=== PATIENT | male | born 1930 | race Two or more races ===

== ENCOUNTER 2016-12-25 07:19 | Inpatient (IN) | payer MEDICARE, OTHER ==
[2016-12-25] VITALS (8 sets, daily range): BP systolic 135–162; BP diastolic 65–74; PULSE 89–112; RESP 18–23; TEMP 96.9–99.9; O2SAT 96–99
[~2016-12-25] VITALS: Ht 182.9 cm; Wt 104.0 kg
--- NOTE | 2016-12-25 07:31 | PD ---
HPI Chief Complaint: Fever Time Seen by Provider: 07:26 Travel History International Travel<30 days: No Contact w/Intl Traveler<30days: No Traveled to known affect area: No History of Present Illness HPI 86-year-old male was [facility] in by [facility] for tachycardia and fever. Patient was found with pulse 108 and temperature 102 this morning at local [facility]. EMS was called. Patient was transported to ED for evaluation. Patient awake and has no complaint. Patient has history of hypertension, hyperlipidemia, anal fistula, or back pain, dependent edema, anemia, GERD, BPH. Patient has a signed DNR. PFSH Past Medical History Cardiovascular Problems: Yes Social History Tobacco Use: No Allergies-Medications (Allergen,Severity, Reaction): Coded Allergies: No Known Allergies (Unverified , 12/25/16) Reported Meds & Prescriptions Reported Meds & Active Scripts Active Reported Metoprolol Tartrate 25 Mg Tab 25 Mg PO BID Metformin (Metformin HCl) 500 Mg Tab 500 Mg PO BIDPC With meals Glimepiride 2 Mg Tab 2 Mg PO BIDAC Ferrous Sulfate 325 Mg (65 Mg Iron) Tablet 325 Mg PO BIDPC Dorzolamide-Timolol Opth Drops 22.3-6.8 Mg/Ml Soln 1 Drop RIGHT EYE BID Tamsulosin (Tamsulosin HCl) 0.4 Mg Cap 0.4 Mg PO DAILY Oxybutynin ER 24 HR (Oxybutynin Chloride) 10 Mg Tab 10 Mg PO DAILY Lexapro (Escitalopram Oxalate) 10 Mg Tab 10 Mg PO DAILY Famotidine 20 Mg Tab 20 Mg PO HS Durezol Opth (Difluprednate Opth) 0.05% Emul Atorvastatin (Atorvastatin Calcium) 10 Mg Tab 10 Mg PO HS Amlodipine (Amlodipine Besylate) 10 Mg Tab 10 Mg PO DAILY Review of Systems General / Constitutional: Positive: Fever Eyes: No: Visual changes HENT: No: Headaches Cardiovascular: No: Chest Pain or Discomfort Respiratory: No: Shortness of Breath Gastrointestinal: No: Abdominal Pain Genitourinary: No: Dysuria Musculoskeletal: No: Pain Skin: No Rash Neurologic: No: Weakness Psychiatric: No: Depression Endocrine: No: Polydipsia Hematologic/Lymphatic: No: Easy Bruising Physical Exam Narrative GENERAL: Well-nourished, well-developed patient. SKIN: Focused skin assessment warm/dry. HEAD: Normocephalic. EYES: No scleral icterus. No injection or drainage. Pupils 2 mm equal reactive. NECK: Supple, trachea midline. No JVD or lymphadenopathy. No meningismus CARDIOVASCULAR: Regular rate and rhythm without murmurs, gallops, or rubs. RESPIRATORY: Breath sounds equal bilaterally. No accessory muscle use. GASTROINTESTINAL: Abdomen soft, non-tender, nondistended. MUSCULOSKELETAL: No cyanosis, or edema. BACK: Nontender without obvious deformity. No CVA tenderness. Neurologic exam: Patient's awake. Patient oriented to name. Patient moves all extremities well. No obvious focal neurological deficit. Data Data Last Documented VS Vital Signs Date Time Temp Pulse Resp B/P (MAP) Pulse Ox O2 Delivery O2 Flow Rate FiO2 12/25/16 09:54 93 18 147/66 (93) 97 Nasal Cannula 2.00 12/25/16 07:22 99.9 Orders Orders Electrocardiogram (12/25/16 07:26) Complete Blood Count With Diff (12/25/16:) Comprehensive Metabolic Panel (12/25/16:) Creatine Kinase (Cpk) (12/25/16:) Troponin I (12/25/16:26) B-Type Natriuretic Peptide (12/25/16:26) Prothrombin Time / Inr (Pt) (12/25/16:) Act Partial Throm Time (Ptt) (12/25/16:26) Blood Culture (12/25/16:) Urinalysis - C+S If Indicated (12/25/16:) Cath For Specimen (12/25/16:) Thyroid Stimulating Hormone (12/25/16:) Influenzae A/B Antigen (12/25/16:26) Chest, Single Ap (12/25/16:26) Iv Access Insert/Monitor (12/25/16:) Ecg Monitoring (12/25/16:) Oxygen Administration (12/25/16:) Oximetry (12/25/16:26) Lactic Acid Sepsis Protocol (12/25/16 07:28) Sodium Chlor 0.9% 1000 Ml Inj (Ns 1000 M (12/25/16 07:45) Vancomycin Inj (Vancomycin Inj) (12/25/16 07:45) Piperacil-Tazo 3.375 Gm Premix (Zosyn 3. (12/25/16 07:45) Urine Culture (12/25/16 08:04) Admit Order (Ed Use Only) (12/25/16 09:53) Labs Laboratory Tests Test 12/25/16 07:00 12/25/16 08:04 White Blood Count 22.0 TH/MM3 Red Blood Count 4.23 MIL/MM3 Hemoglobin 13.2 GM/DL Hematocrit 39.1 % Mean Corpuscular Volume 92.4 FL Mean Corpuscular Hemoglobin 31.2 PG Mean Corpuscular Hemoglobin Concent 33.8 % Red Cell Distribution Width 13.5 % Platelet Count 147 TH/MM3 Mean Platelet Volume 9.0 FL Neutrophils (%) (Auto) 87.3 % Lymphocytes (%) (Auto) 4.6 % Monocytes (%) (Auto) 7.4 % Eosinophils (%) (Auto) 0.2 % Basophils (%) (Auto) 0.5 % Neutrophils # (Auto) 19.2 TH/MM3 Lymphocytes # (Auto) 1.0 TH/MM3 Monocytes # (Auto) 1.6 TH/MM3 Eosinophils # (Auto) 0.0 TH/MM3 Basophils # (Auto) 0.1 TH/MM3 CBC Comment DIFF FINAL Differential Comment Prothrombin Time 12.0 SEC Prothromb Time International Ratio 1.1 RATIO Activated Partial Thromboplast Time 31.2 SEC Blood Urea Nitrogen 16 MG/DL Creatinine 1.04 MG/DL Random Glucose 173 MG/DL Total Protein 7.4 GM/DL Albumin 3.2 GM/DL Calcium Level 8.6 MG/DL Alkaline Phosphatase 90 U/L Aspartate Amino Transf (AST/SGOT) 11 U/L Alanine Aminotransferase (ALT/SGPT) 16 U/L Total Bilirubin 1.0 MG/DL Sodium Level 139 MEQ/L Potassium Level 4.2 MEQ/L Chloride Level 104 MEQ/L Carbon Dioxide Level 28.2 MEQ/L Anion Gap 7 MEQ/L Estimat Glomerular Filtration Rate 67 ML/MIN Lactic Acid Level 1.0 mmol/L Total Creatine Kinase 39 U/L Troponin I 0.03 NG/ML B-Type Natriuretic Peptide 141 PG/ML Thyroid Stimulating Hormone 3rd Gen 0.610 uIU/ML Urine Color YELLOW Urine Turbidity CLEAR Urine pH 5.5 Urine Specific [place] 1.017 Urine Protein 30 mg/dL Urine Glucose (UA) NEG mg/dL Urine Ketones TRACE mg/dL Urine Occult Blood SMALL Urine Nitrite NEG Urine Bilirubin NEG Urine Urobilinogen LESS THAN 2.0 MG/DL Urine Leukocyte Esterase MOD Urine RBC 4 /hpf Urine WBC 43 /hpf Urine WBC Clumps RARE Urine Bacteria OCC /hpf Urine Mucus FEW /lpf Microscopic Urinalysis Comment CULTURE INDICATED MDM Medical Decision Making Medical Screen Exam Complete: Yes Emergency Medical Condition: Yes Interpretation(s) Last Impressions Chest X-Ray 12/25/16 0726 Signed Impressions: Service Date/Time: Sunday, December 25, 2016 07:49 - CONCLUSION: No acute cardiopulmonary abnormality is identified. Brian Anderson MD 9:16 AM. CBC WBC 22.0. Platelet 147. 87 neutrophil. CMP within normal limit. After acid 1.0. BNP 141. UA positive for WBC and bacteria. Differential Diagnosis Differential diagnosis including sepsis, pneumonia, UTI, electrolyte imbalance, dehydration. Narrative Course 86-year-old male with fever and mild tachycardia. Sepsis protocol started. Normal saline solution 1 L IV bolus. Zosyn 3.375 g IV given. Vancomycin 1 g IV given. Diagnosis Primary Impression: Sepsis Qualified Codes: A41.9 - Sepsis, unspecified organism Additional Impression: UTI (urinary tract infection) Qualified Codes: N30.00 - Acute cystitis without hematuria Admitting Information Admitting Physician Requests: Admit Tay Mcpherson MD Dec 25, 2016 07:31
[2016-12-25] MEDS ORDERED: PIPERACIL-TAZO 3.375 GM PREMIX 50 ML IV ONE (07:45)
[2016-12-25] MEDS ORDERED: VANCOMYCIN INJ 1,000 MG in SODIUM CHLOR 0.9% 250 ML INJ 250 ML IV ONE (07:45)
[2016-12-25] MEDS ORDERED: SODIUM CHLOR 0.9% 1000 ML INJ 1,000 ML IV ONE (07:45)
[2016-12-25 07:49] LABS: AUTOMATED NEUTROPHIL # 19.2 TH/MM3 (1.8-7.7); BASOPHIL # 0.1 TH/MM3 (0-0.2); BASOPHIL % 0.5 % (0.0-2.0); EOSINOPHIL % 0.2 % (0.0-4.0); HEMATOCRIT 39.1 % (39.0-51.0); HEMO FLAGS DIFF FINAL; LYMPH % 4.6 % (9.0-44.0); MEAN CELL VOLUME 92.4 FL (80.0-100.0); MEAN CORPUSCULAR HEMOGLOBIN 31.2 PG (27.0-34.0); MEAN CORPUSCULAR HGB CONC 33.8 % (32.0-36.0); MONO % 7.4 % (0.0-8.0); NEUT % 87.3 % (16.0-70.0); PLATELET COUNT 147 TH/MM3 (150-450); RED BLOOD COUNT 4.23 MIL/MM3 (4.50-5.90); RED CELL DISTRIBUTION WIDTH 13.5 % (11.6-17.2)
--- NOTE | 2016-12-25 07:54 | RADRPT ---
EXAM DATE/TIME: 12/25/2016 07:49 [facility] COMPARISON: No previous studies available for comparison. INDICATIONS : Fever. MEDICAL HISTORY : unobtainable SURGICAL HISTORY : unobtainable ENCOUNTER: Initial ACUITY: 1 day PAIN SCORE: Non-responsive. LOCATION: Bilateral chest FINDINGS: Portable AP view of the chest demonstrates a normal-sized cardiac silhouette. No effusion, consolidat ion, or pneumothorax is visualized. The bones and soft tissues demonstrate no acute abnormality. CONCLUSION: No acute cardiopulmonary abnormality is identified. Brian Anderson MD on December 25, 2016 at 7:52 Board Certified Radiologist. This report was verified electronically.
[2016-12-25 08:00] LABS: APTT (PATIENT) 31.2 SEC (24.3-30.1); INTERNATIONAL NORMALIZED RATIO 1.1 RATIO
[2016-12-25 08:09] LABS: ALT (GPT) 16 U/L (12-78); ANION GAP 7 MEQ/L (5-15); AST (GOT) 11 U/L (15-37); BICARBONATE 28.2 MEQ/L (21.0-32.0); BLOOD UREA NITROGEN 16 MG/DL (7-18); CHLORIDE 104 MEQ/L (98-107); GLOMERULAR FILTRATION RATE 67 ML/MIN (>89); POTASSIUM 4.2 MEQ/L (3.5-5.1); SODIUM (NA) 139 MEQ/L (136-145)
[2016-12-25 08:18] LABS: ALKALINE PHOSPHATASE 90 U/L (45-117)
[2016-12-25 08:21] LABS: CREATINE KINASE 39 U/L (39-308)
[2016-12-25] MEDS ORDERED: FERR325T8 PO (08:23)
[2016-12-25] MEDS ORDERED: FAMO20TA2 PO (08:23)
[2016-12-25] MEDS ORDERED: METO25TA3 PO (08:23)
[2016-12-25] MEDS ORDERED: GLIM2TAB PO (08:23)
[2016-12-25] MEDS ORDERED: OXYB10TA PO (08:23)
[2016-12-25] MEDS ORDERED: TAMS0.4C4 PO (08:23)
[2016-12-25] MEDS ORDERED: LEXA10TA PO (08:23)
[2016-12-25] MEDS ORDERED: ATOR10TA15 PO (08:23)
[2016-12-25] MEDS ORDERED: AMLO10TA2 PO (08:23)
[2016-12-25] MEDS ORDERED: DIFL0.0512 (08:23)
[2016-12-25] MEDS ORDERED: METF500T PO (08:23)
[2016-12-25] MEDS ORDERED: DORZ2SOL15 RIGHT EYE (08:23)
[2016-12-25 08:40] LABS: BACTERIA, URINE OCC /hpf; BLOOD, URINE SMALL (NEG); COMMENT (UR) CULTURE INDICATED; CULTURE IF INDICATED CULTURE INDICATED; GLUCOSE,URINE NEG (NEG); KETONE, URINE TRACE mg/dL (NEG); MUCUS URINE FEW /lpf (OCC); NITRITE,URINE NEG (NEG); PH, URINE 5.5 (5.0-8.5); URINE COLOR YELLOW (YELLW/STRAW)
[2016-12-25] MEDS ORDERED: NALOXONE HCL 0.4 MG/ML AMP IV PRN (10:00)
[2016-12-25] MEDS ORDERED: SODIUM CHLORIDE 0.9% FLUSH 10 ML FLUSH IVF PRN (10:00)
[2016-12-25] MEDS ORDERED: Vancomycin Consult Pharmacy 1 EA OTHER SCH (10:00)
[2016-12-25] MEDS ORDERED: BISACODYL 10 MG SUPP RECTAL PRN (10:00)
[2016-12-25] MEDS ORDERED: SODIUM CHLORIDE 0.9% FLUSH 10 ML FLUSH IV FLUSH PRN (10:00)
[2016-12-25] MEDS ORDERED: ONDANSETRON HCL 4 MG/2 ML VIAL IVP PRN (10:00)
[2016-12-25] MEDS ORDERED: DEXTROSE 50% IN WATER 50 ML VIAL(D50) IV PRN (10:00)
[2016-12-25] MEDS ORDERED: ONDANSETRON HCL 4 MG/2 ML VIAL IV PRN (10:00)
[2016-12-25] MEDS ORDERED: GLUCAGON 1 MG/ML VIAL OTHER PRN (10:00)
[2016-12-25] MEDS ORDERED: LACTULOSE SYRUP 20 GM/30 ML CUP PO PRN (10:00)
[2016-12-25] MEDS ORDERED: MAGNESIUM HYDROXIDE SUSP 30 ML CUP PO PRN (10:00)
[2016-12-25] MEDS ORDERED: SENNOSIDES 8.6 MG TAB PO PRN (10:00)
[2016-12-25] MEDS ORDERED: ACETAMINOPHEN 325 MG TAB PO PRN (10:00)
[2016-12-25] MEDS: SODIUM CHLOR 0.9% 1000 ML INJ 1,000 ML IV SCH ×2 (10:47→17:43)
[2016-12-25] MEDS: INSULIN ASPART SUPPLEMENTAL SCALE SQ SCH ×3 (11:00→21:15)
[2016-12-25] MEDS: TOLTERODINE TARTRATE 4 MG CAP LA PO SCH (11:47)
[2016-12-25] MEDS: ENOXAPARIN SODIUM 40 MG/0.4 ML SYRINGE SQ SCH (13:45)
--- NOTE | 2016-12-25 13:45 | HHI.HP ---
[facility] Physician Souleymane Mckinley MD Admission Diagnosis sepsis. UTI. Diagnoses: Chief Complaint: Fever Travel History International Travel<30 Days: No Contact w/Intl Traveler <30 Da: No Traveled to Known Affected Are: No History of Present Illness This is a 86-year-old gentleman with past medical history of diabetes who presented from [facility] secondary to fevers and fatigue. Patient is a poor historian and most of the history taken from his son and daughter-in- law were at the bedside during the interview and examination. Patient is able to give me his full name and location. He could not tell me the date. I was able to get some information from and he had no complaints. His son stated that he sees patient every day and that yesterday he was more fatigued and was in bed all day. He stated that today he had a fevers they brought him here due to UTI. Patient never complained of any abdominal pain or any urinary symptoms. Per patient's son since he had the left femur fracture he does not have any motivation to do anything. Patient's son stated that patient being bedridden is his baseline. Patient wears a diaper. Per patient's son this is his first UTI. All other review symptoms reviewed and negative. Past Family Social History Past Medical History Type 2 diabetes Depression Hypertension Hyperlipidemia BPH History of left femur fracture Past Surgical History Left femur fracture repair Reported Medications Reported Meds & Active Scripts Active Reported Metoprolol Tartrate 25 Mg Tab 25 Mg PO BID Metformin (Metformin HCl) 500 Mg Tab 500 Mg PO BIDPC With meals Glimepiride 2 Mg Tab 2 Mg PO BIDAC Ferrous Sulfate 325 Mg (65 Mg Iron) Tablet 325 Mg PO BIDPC Dorzolamide-Timolol Opth Drops 22.3-6.8 Mg/Ml Soln 1 Drop RIGHT EYE BID Tamsulosin (Tamsulosin HCl) 0.4 Mg Cap 0.4 Mg PO DAILY Oxybutynin ER 24 HR (Oxybutynin Chloride) 10 Mg Tab 10 Mg PO DAILY Lexapro (Escitalopram Oxalate) 10 Mg Tab 10 Mg PO DAILY Famotidine 20 Mg Tab 20 Mg PO HS Durezol Opth (Difluprednate Opth) 0.05% Emul Atorvastatin (Atorvastatin Calcium) 10 Mg Tab 10 Mg PO HS Amlodipine (Amlodipine Besylate) 10 Mg Tab 10 Mg PO DAILY Allergies: Coded Allergies: No Known Allergies (Unverified , 12/25/16) Active Ordered Medications Current Medications Sodium Chloride 1,000 ml @ 999 mls/hr BOLUS ONCE IV Last administered on 12/25 08:16; Start 12/25/16 at 07:45; Stop 12/25/16 at 08:45; Status DC Vancomycin HCl 1000 mg/Sodium Chloride 250 ml @ 250 mls/hr ONCE ONCE IV Last administered on 12/25/16 08:50; Start 12/25/16 at 07:45; Stop 12/25/16 at 08:44 ; Status DC Piperacillin Sod/ Tazobactam Sod 50 ml @ 100 mls/hr ONCE ONCE IV Last administered on 12/25/16 08:16; Start 12/25/16 at 07:45; Stop 12/25/16 at 08:14 ; Status DC Sodium Chloride 1,000 ml @ 150 mls/hr Q6H40M IV Last administered on 10:47; Start 12/25/16 at 09:52 Sodium Chloride (NS Flush) 2 ml UNSCH PRN IV FLUSH FLUSH AFTER USING IV ACCESS ; Start 12/25/16 at 10:00 Sodium Chloride (NS Flush) 2 ml BID IV FLUSH ; Start 12/25/16 at 21:00 Acetaminophen (Tylenol) 650 mg Q4H PRN PO TEMP > 100.4; Start 12/25/16 at 10:00 ; Status Cancel Ondansetron HCl (Zofran Inj) 4 mg Q6H PRN IVP NAUSEA OR VOMITING; Start at 10:00 Naloxone HCl (Narcan Inj) 0.4 mg UNSCH PRN IV SEE LABEL COMMENTS; Start at 10:00 Senna/Docusate Sodium (Nhung-Colace) 1 tab BID PO ; Start 12/25/16 at 21:00 Magnesium Hydroxide (Milk Of Magnesia Liq) 30 ml Q12H PRN PO MILD - MODERATE CONSTIPATION; Start 12/25/16 at 10:00 Sennosides (Senokot) 17.2 mg Q12H PRN PO MODERATE - SEVERE CONSTIPATION; Start 12/25/16 at 10:00 Bisacodyl (Dulcolax Supp) 10 mg DAILY PRN RECTAL SEVERE CONSITIPATION; Start at 10:00 Lactulose (Lactulose Liq) 30 ml DAILY PRN PO SEVERE CONSITIPATION; Start at 10:00 Ondansetron HCl (Zofran Inj) 4 mg Q6H PRN IV NAUSEA OR VOMITING; Start at 10:00; Stop 12/25/16 at 10:25; Status DC Acetaminophen (Tylenol) 650 mg Q4H PRN PO Temp>101F, Headache; Start 12/25/16 at 10:00 Sodium Chloride (NS Flush) 2 ml UNSCH PRN IVF FLUSH AFTER USING IV ACCESS; Start 12/25/16 at 10:00; Status UNV Piperacillin Sod/ Tazobactam Sod 50 ml @ 100 mls/hr Q6H IV ; Start 12/25/16 at 14:00 Pharmacy Profile Note 0 ml @ 0 mls/hr UNSCH OTHER ; Start 12/25/16 at 10:00 Vancomycin HCl 1000 mg/Sodium Chloride 250 ml @ 250 mls/hr Q12H IV ; Start 01/31 at 19:00; Status UNV Atorvastatin Calcium (Lipitor) 10 mg HS PO ; Start 12/25/16 at 21:00 Dorzolamide/ Timolol (Cosopt 2-0.5% Opth Soln) 1 drop BID RIGHT EYE ; Start 01/31 at 21:00 Escitalopram Oxalate (Lexapro) 10 mg DAILY PO ; Start 12/26/16 at 09:00 Famotidine (Pepcid) 20 mg HS PO ; Start 12/25/16 at 21:00 Ferrous Sulfate (Ferrous Sulfate) 325 mg BIDPC PO ; Start 12/25/16 at 18:00 Tamsulosin HCl (Flomax) 0.4 mg DAILY PO ; Start 12/26/16 at 09:00 Tolterodine Tartrate (Detrol La) 4 mg DAILY PO Last administered on 12/25/16t 11:47; Start 12/25/16 at 11:00 Dextrose (D50w (Vial) Inj) 50 ml UNSCH PRN IV HYPOGLYCEMIA-SEE COMMENTS; Start 12/25/16 at 10:00 Glucagon (Glucagon Inj) 1 mg UNSCH PRN OTHER HYPOGLYCEMIA-SEE COMMENTS; Start 12/25/16 at 10:00 Insulin Aspart (NovoLOG SUPPLEMENTAL SCALE) 1 ACHS SLIDING SCALE SQ ; Start 01/31 at 11:00 Vancomycin HCl 1500 mg/Sodium Chloride 515 ml @ 257.5 mls/ hr Q18H IV ; Start 12/26/16 at 03:00 Miscellaneous Information SPECIFIC LAB TO BE MELISSA... ONCE ONCE .XX ; Start 12/28 at 08:45; Stop 12/28/16 at 08:46 Family History Per patient's son everyone the family's healthy. No past family history. Social History Patient lives in [place] with his who has severe dementia. Patient smoked in the past but stopped a long time ago. Denies any alcohol illicit drug use. Physical Exam Vital Signs Vital Signs Date Time Temp Pulse Resp B/P (MAP) Pulse Ox O2 Delivery O2 Flow Rate FiO2 12/25/16 12:55 89 20 145/74 (97) 96 Nasal Cannula 2.00 12/25/16 10:20 Nasal Cannula 2.00 12/25/16 09:54 93 18 147/66 (93) 97 Nasal Cannula 2.00 12/25/16 07:34 98 Nasal Cannula 2.00 12/25/16 07:27 110 22 96 Room Air 12/25/16 07:22 99.9 112 22 162/73 (102) 96 Physical Exam GENERAL: This is a well-nourished, well-developed patient, in no apparent distress. SKIN: No rashes, ecchymoses or lesions. Cool and dry. HEAD: Atraumatic. Normocephalic. No temporal or scalp tenderness. EYES: Pupils equal round and reactive. Extraocular motions intact. No scleral icterus. No injection or drainage. ENT: Nose without bleeding, purulent drainage or septal hematoma. Throat without erythema, tonsillar hypertrophy or exudate. Uvula midline. Airway patent. NECK: Trachea midline. No JVD or lymphadenopathy. Supple, nontender, no meningeal signs. CARDIOVASCULAR: Regular rate and rhythm without gallops, or rubs. Soft systolic heart murmur RESPIRATORY: Clear to auscultation. Breath sounds equal bilaterally. No wheezes , rales, or rhonchi. GASTROINTESTINAL: Abdomen soft, non-tender, nondistended. No hepato-splenomegaly , or palpable masses. No guarding. MUSCULOSKELETAL: Extremities without clubbing, cyanosis, or edema. Tenderness palpation over lower extremity bilaterally that is chronic. No calf tenderness. Negative Homans sign bilaterally. NEUROLOGICAL: Awake and alert. Cranial nerves II through XII intact. Motor and sensory grossly within normal limits. Five out of 5 muscle strength in all muscle groups. Normal speech. Laboratory Laboratory Tests Test 12/25/16 07:00 12/25/16 08:04 White Blood Count 22.0 Red Blood Count 4.23 Hemoglobin 13.2 Hematocrit 39.1 Mean Corpuscular Volume 92.4 Mean Corpuscular Hemoglobin 31.2 Mean Corpuscular Hemoglobin Concent 33.8 Red Cell Distribution Width 13.5 Platelet Count 147 Mean Platelet Volume 9.0 Neutrophils (%) (Auto) 87.3 Lymphocytes (%) (Auto) 4.6 Monocytes (%) (Auto) 7.4 Eosinophils (%) (Auto) 0.2 Basophils (%) (Auto) 0.5 Neutrophils # (Auto) 19.2 Lymphocytes # (Auto) 1.0 Monocytes # (Auto) 1.6 Eosinophils # (Auto) 0.0 Basophils # (Auto) 0.1 CBC Comment DIFF FINAL Differential Comment Prothrombin Time 12.0 Prothromb Time International Ratio 1.1 Activated Partial Thromboplast Time 31.2 Blood Urea Nitrogen 16 Creatinine 1.04 Random Glucose 173 Total Protein 7.4 Albumin 3.2 Calcium Level 8.6 Alkaline Phosphatase 90 Aspartate Amino Transf (AST/SGOT) 11 Alanine Aminotransferase (ALT/SGPT) 16 Total Bilirubin 1.0 Sodium Level 139 Potassium Level 4.2 Chloride Level 104 Carbon Dioxide Level 28.2 Anion Gap 7 Estimat Glomerular Filtration Rate 67 Lactic Acid Level 1.0 Total Creatine Kinase 39 Troponin I 0.03 B-Type Natriuretic Peptide 141 Thyroid Stimulating Hormone 3rd Gen 0.610 Urine Color YELLOW Urine Turbidity CLEAR Urine pH 5.5 Urine Specific [place] 1.017 Urine Protein 30 Urine Glucose (UA) NEG Urine Ketones TRACE Urine Occult Blood SMALL Urine Nitrite NEG Urine Bilirubin NEG Urine Urobilinogen LESS THAN 2.0 Urine Leukocyte Esterase MOD Urine RBC 4 Urine WBC 43 Urine WBC Clumps RARE Urine Bacteria OCC Urine Mucus FEW Microscopic Urinalysis Comment CULTURE INDICATED Date/Time Source Procedure Growth Status 12/25/16 07:00 Blood Peripheral Aerobic Blood Culture Pending Received 12/25/16 07:00 Blood Peripheral Anaerobic Blood Culture Pending Received 12/25/16 07:25 Nasal Washing Influenza Types A,B Antigen (LISA) - Final Complete 12/25/16 08:04 Urine Random Urine Urine Culture Pending Received Result Diagram: 12/25/16 0700 12/25/16 07 Imaging Last Impressions Chest X-Ray 12/25/16725 Signed Impressions: Service Date/Time: Sunday, December 25, 2016 07:49 - CONCLUSION: No acute cardiopulmonary abnormality is identified. Brian Anderson MD Septic Shock Reassessment Heart: Regular rate and rhythm Lungs: Clear Skin: Warm Caprini VTE Risk Assessment Caprini VTE Risk Assessment: Mod/High Risk (score >= 2) Caprini Risk Assessment Model Point Value = 1 Point Value = 2 Point Value = 3 Point Value = 5 Age 41-60 Minor surgery BMI > 25 kg/m2 Swollen legs Varicose veins or History of unexplained or recurrent spontaneous Oral contraceptives or hormone replacement Sepsis (< 1 month) Serious lung disease, including pneumonia (< 1 month) Abnormal pulmonary function Acute myocardial infarction Congestive heart failure (< 1 month) History of inflammatory bowel disease Medical patient at bed rest Age 61-74 Arthroscopic surgery Major open surgery (> 45 min) Laparoscopic surgery (> 45 min) Malignancy Confined to bed (> 72 hours) Immobilizing plaster cast Central venous access Age >= 75 History of VTE Family history of VTE Factor V Leiden Prothrombin [id number] Lupus anticoagulant Anticardiolipin antibodies Elevated serum homocysteine Heparin-induced thrombocytopenia Other congenital or acquired thrombophilia Stroke (< 1 month) Elective arthroplasty Hip, pelvis, or leg fracture Acute spinal cord injury (< 1 month) Prophylaxis Regimen Total Risk Factor Score Risk Level Prophylaxis Regimen 0-1 Low Early ambulation 2 Moderate Order ONE of the following: *Sequential Compression Device (SCD) *Heparin 5000 units SQ BID 3-4 Higher Order ONE of the following medications: *Heparin 5000 units SQ TID *Enoxaparin/Lovenox 40 mg SQ daily (WT < 150 kg, CrCl > 30 mL/min) *Enoxaparin/Lovenox 30 mg SQ daily (WT < 150 kg, CrCl > 10-29 mL/min) *Enoxaparin/Lovenox 30 mg SQ BID (WT < 150 kg, CrCl > 30 mL/min) AND/OR *Sequential Compression Device (SCD) 5 or more Highest Order ONE of the following medications: *Heparin 5000 units SQ TID (Preferred with Epidurals) *Enoxaparin/Lovenox 40 mg SQ daily (WT < 150 kg, CrCl > 30 mL/min) *Enoxaparin/Lovenox 30 mg SQ daily (WT < 150 kg, CrCl > 10-29 mL/min) *Enoxaparin/Lovenox 30 mg SQ BID (WT < 150 kg, CrCl > 30 mL/min) AND *Sequential Compression Device (SCD) Assessment and Plan Assessment and Plan This is a 86-year-old male past medical history of type 2 diabetes, hypertension , lipidemia, BPH, bed bound who presented with fever Sepsis -Patient meets sepsis criteria with fever, tachycardia, and leukocytosis. -Labs and imaging was obtained. Patient found to have leukocytosis 22,000 and UA suggest UTI. Chest x-ray negative. Blood cultures obtained. Urine cultures pending. -In emergency department he was given vancomycin and Zosyn. We'll continue with ankle mites and Zosyn. -He was also given a bolus of fluids with improvement in his blood pressure. Will give him maintenance fluids dose at 1 50 cc/h. -Continue to monitor. Will put patient on telemetry. Soft heart murmur -Family is unaware of heart murmur. Will get an echo. Type 2 diabetes -Will put patient on insulin sliding scale. Per patient's son patient is noncompliant. It also seemed that patient may have some peripheral neuropathy. -Hypoglycemia protocol. Will adjust medication based on blood sugars. UTI -See treatment as above. BPH/hyperlipidemia/hypertension -Resume home medication except for his antihypertensive medication secondary to sepsis. If blood pressure shows that patient is hypertensive will resume his medication. DVT prophylaxis -Lovenox. Code Status Dealt with patient, his son, and his [id number] patient is a DO NOT RESUSCITATE. Discussed Condition With Patient, his son, and his [id number]. Physician Certification 2 Midnight Certification Type: Admission for Inpatient Services Order for Inpatient Services The services are ordered in accordance with Medicare regulations or non- Medicare payer requirements, as applicable. In the case of services not specified as inpatient-only, they are appropriately provided as inpatient services in accordance with the 2-midnight benchmark. Estimated LOS (days): 3 3 days is the estimated time the patient will need to remain in the hospital, assuming treatment plan goals are met and no additional complications. Post-Hospital Plan: Tawana Peter MD Dec 25, 2016 13:45
[2016-12-25] MEDS: PIPERACIL-TAZO 3.375 GM PREMIX 50 ML IV SCH ×2 (14:20→21:08)
[2016-12-25] MEDS: FERROUS SULFATE 325 MG (65 MG ELEMENTAL IRON) TAB PO SCH (17:43)
[2016-12-25] MEDS ORDERED: VANCOMYCIN INJ 1,000 MG in SODIUM CHLOR 0.9% 250 ML INJ 250 ML IV SCH (19:00)
[2016-12-25] MEDS: DOCUSATE SODIUM 50 MG/SENNA 8.6 MG TAB PO SCH (20:44)
[2016-12-25] MEDS: SODIUM CHLORIDE 0.9% FLUSH 10 ML FLUSH IV FLUSH SCH (20:44)
[2016-12-25] MEDS: ATORVASTATIN 10 MG TAB PO SCH (20:44)
[2016-12-25] MEDS: FAMOTIDINE 20 MG TAB PO SCH (20:44)
[2016-12-25] MEDS: DORZOLAMIDE/TIMOLOL OPTH SOLN 10 ML BTL RIGHT EYE SCH (21:11)
[2016-12-26] VITALS (12 sets, daily range): BP systolic 120–144; BP diastolic 58–73; PULSE 71–100; RESP 16–20; TEMP 97–98.8; O2SAT 93–97
[2016-12-26] MEDS: SODIUM CHLOR 0.9% 1000 ML INJ 1,000 ML IV SCH ×5 (00:33→23:47)
[2016-12-26] MEDS: PIPERACIL-TAZO 3.375 GM PREMIX 50 ML IV SCH ×4 (02:41→19:43)
[2016-12-26] MEDS: VANCOMYCIN 1,500 MG/NS 500 ML IV SCH ×4 (03:21→22:02)
[2016-12-26] MEDS: INSULIN ASPART SUPPLEMENTAL SCALE SQ SCH ×4 (06:20→21:57)
[2016-12-26] MEDS ORDERED: TAMSULOSIN HCL 0.4 MG CAP PO SCH (09:00)
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
[2016-12-26] MEDS: TOLTERODINE TARTRATE 4 MG CAP LA PO SCH (10:08)
[2016-12-26] MEDS: FERROUS SULFATE 325 MG (65 MG ELEMENTAL IRON) TAB PO SCH ×2 (10:08→16:17)
[2016-12-26] MEDS: ESCITALOPRAM OXALATE 10 MG TAB PO SCH (10:08)
[2016-12-26] MEDS: SODIUM CHLORIDE 0.9% FLUSH 10 ML FLUSH IV FLUSH SCH ×2 (10:08→21:59)
[2016-12-26] MEDS: DORZOLAMIDE/TIMOLOL OPTH SOLN 10 ML BTL RIGHT EYE SCH ×2 (10:09→21:57)
[2016-12-26] MEDS: METOPROLOL TARTRATE 25 MG TAB PO SCH ×2 (10:12→21:58)
[2016-12-26] MEDS: DOCUSATE SODIUM 50 MG/SENNA 8.6 MG TAB PO SCH ×2 (10:23→21:00)
--- NOTE | 2016-12-26 11:15 | EKG ---
Date Performed: 12/25/2016 Time Performed: 07:39:34 PTAGE: 86 years EKG: SINUS TACHYCARDIA RIGHT BUNDLE BRANCH BLOCK LEFT ANTERIOR FASCICULAR BLOCK ABNORMAL ECG NO PREVIOUS TRACING DOCTOR: Tj Rowland Interpretating Date/Time 12/26/2016 11:14:41
[2016-12-26 11:55] LABS: HEMATOCRIT 36.1 % (39.0-51.0); MEAN CELL VOLUME 93.9 FL (80.0-100.0); MEAN CORPUSCULAR HEMOGLOBIN 31.1 PG (27.0-34.0); MEAN CORPUSCULAR HGB CONC 33.1 % (32.0-36.0); PLATELET COUNT 131 TH/MM3 (150-450); RED BLOOD COUNT 3.84 MIL/MM3 (4.50-5.90); RED CELL DISTRIBUTION WIDTH 13.5 % (11.6-17.2); REVIEW FLAG FINAL; WHITE BLOOD COUNT 19.9 TH/MM3 (4.0-11.0)
[2016-12-26 12:29] LABS: BICARBONATE 25.6 MEQ/L (21.0-32.0); POTASSIUM 3.7 MEQ/L (3.5-5.1)
[2016-12-26] MEDS: ENOXAPARIN SODIUM 40 MG/0.4 ML SYRINGE SQ SCH (14:19)
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
[2016-12-26] MEDS: ATORVASTATIN 10 MG TAB PO SCH (21:58)
[2016-12-26] MEDS: FAMOTIDINE 20 MG TAB PO SCH (21:58)
[2016-12-26] MEDS: TAMSULOSIN HCL 0.4 MG CAP PO SCH (21:59)
[2016-12-27] VITALS (16 sets, daily range): BP systolic 116–140; BP diastolic 56–69; PULSE 72–94; RESP 14–24; TEMP 96–98; O2SAT 93–100
[2016-12-27] MEDS: PIPERACIL-TAZO 3.375 GM PREMIX 50 ML IV SCH ×4 (02:40→20:36)
[2016-12-27] MEDS: INSULIN ASPART SUPPLEMENTAL SCALE SQ SCH ×4 (05:51→21:00)
[2016-12-27] MEDS: ESCITALOPRAM OXALATE 10 MG TAB PO SCH (07:58)
[2016-12-27] MEDS: TAMSULOSIN HCL 0.4 MG CAP PO SCH ×2 (07:58→21:00)
[2016-12-27] MEDS: FERROUS SULFATE 325 MG (65 MG ELEMENTAL IRON) TAB PO SCH ×2 (07:58→18:00)
[2016-12-27] MEDS: METOPROLOL TARTRATE 25 MG TAB PO SCH ×2 (07:58→21:00)
[2016-12-27] MEDS: DORZOLAMIDE/TIMOLOL OPTH SOLN 10 ML BTL RIGHT EYE SCH ×2 (08:00→20:37)
[2016-12-27] MEDS: DOCUSATE SODIUM 50 MG/SENNA 8.6 MG TAB PO SCH ×2 (08:05→21:00)
[2016-12-27] MEDS: SODIUM CHLOR 0.9% 1000 ML INJ 1,000 ML IV SCH (08:11)
[2016-12-27] MEDS: SODIUM CHLORIDE 0.9% FLUSH 10 ML FLUSH IV FLUSH SCH ×2 (08:11→20:36)
--- NOTE | 2016-12-27 10:14 | HHI.PR ---
Subjective Remarks Follow-up for sepsis, urinary retention, and UTI Patient stated that he slept better yesterday night and has no complaints. Denied any nausea or vomiting, abdominal pain or any concerns. Patient's night nurse stated that he had incontinence last night so she did not him. Dealt with patient's daytime nurse. Objective Vitals Vital Signs Date Time Temp Pulse Resp B/P (MAP) Pulse Ox O2 Delivery O2 Flow Rate FiO2 12/27/16 09:28 95 12/27/16 04:15 96.6 78 19 122/56 (78) 94 12/27/16 04:09 72 12/27/16 00:20 96.0 73 18 132/60 (84) 97 12/27/16 00:04 72 12/26/16 20:15 98.8 82 19 120/59 (79) 97 12/26/16 20:04 100 12/26/16 16:00 97.4 82 16 125/64 (84) 93 12/26/16 12:32 71 12/26/16 12:00 98.0 75 20 124/58 (80) 93 12/26/16 11:02 97 I/O 12/26/16 12/26/16 12/26/16 12/27/16 12/27/16 12/27/16 07:00 15:00 23:00 07:00 15:00 23:00 Intake Total 1105 ml 118 ml 1055 ml 50 ml Output Total 750 ml 250 ml 400 ml Balance 355 ml -132 ml 655 ml 50 ml Intake Oral 50 ml 118 ml 50 ml IV Total 1055 ml 1055 ml Output Urine Total 750 ml 250 ml 400 ml # Voids 1 1 3 # Bowel Movements 1 1 1 1 Result Diagram: 12/26/16 1056 12/26/16 1056 Objective Remarks GENERAL: in NAD CARDIOVASCULAR: Regular rate and rhythm without gallops, or rubs. 2/6 soft systolic murmur. RESPIRATORY: Breath sounds equal bilaterally. No accessory muscle use. GASTROINTESTINAL: Abdomen soft, non-tender, nondistended. BACK: No CVA tenderness. Medications and IVs Current Medications Sodium Chloride 1,000 ml @ 999 mls/hr BOLUS ONCE IV Last administered on 12/25t 08:16; Start 12/25/16 at 07:45; Stop 12/25/16 at 08:45; Status DC Vancomycin HCl 1000 mg/Sodium Chloride 250 ml @ 250 mls/hr ONCE ONCE IV Last administered on 12/25/16 08:50; Start 12/25/16 at 07:45; Stop 12/25/16 at 08:44 ; Status DC Piperacillin Sod/ Tazobactam Sod 50 ml @ 100 mls/hr ONCE ONCE IV Last administered on 12/25/16 08:16; Start 12/25/16 at 07:45; Stop 12/25/16 at 08:14 ; Status DC Sodium Chloride 1,000 ml @ 150 mls/hr Q6H40M IV Last administered on 08:11; Start 12/25/16 at 09:52 Sodium Chloride (NS Flush) 2 ml UNSCH PRN IV FLUSH FLUSH AFTER USING IV ACCESS ; Start 12/25/16 at 10:00 Sodium Chloride (NS Flush) 2 ml BID IV FLUSH Last administered on 12/26/16 21: 59; Start 12/25/16 at 21:00 Acetaminophen (Tylenol) 650 mg Q4H PRN PO TEMP > 100.4; Start 12/25/16 at 10:00 ; Status Cancel Ondansetron HCl (Zofran Inj) 4 mg Q6H PRN IVP NAUSEA OR VOMITING; Start at 10:00 Naloxone HCl (Narcan Inj) 0.4 mg UNSCH PRN IV SEE LABEL COMMENTS; Start at 10:00 Senna/Docusate Sodium (Nhung-Colace) 1 tab BID PO Last administered on 10:23; Start 12/25/16 at 21:00 Magnesium Hydroxide (Milk Of Magnesia Liq) 30 ml Q12H PRN PO MILD - MODERATE CONSTIPATION; Start 12/25/16 at 10:00 Sennosides (Senokot) 17.2 mg Q12H PRN PO MODERATE - SEVERE CONSTIPATION; Start 12/25/16 at 10:00 Bisacodyl (Dulcolax Supp) 10 mg DAILY PRN RECTAL SEVERE CONSITIPATION; Start at 10:00 Lactulose (Lactulose Liq) 30 ml DAILY PRN PO SEVERE CONSITIPATION; Start at 10:00 Ondansetron HCl (Zofran Inj) 4 mg Q6H PRN IV NAUSEA OR VOMITING; Start at 10:00; Stop 12/25/16 at 10:25; Status DC Acetaminophen (Tylenol) 650 mg Q4H PRN PO Temp>101F, Headache; Start 12/25/16 at 10:00 Sodium Chloride (NS Flush) 2 ml UNSCH PRN IVF FLUSH AFTER USING IV ACCESS; Start 12/25/16 at 10:00; Status UNV Piperacillin Sod/ Tazobactam Sod 50 ml @ 100 mls/hr Q6H IV Last administered on 12/27/16 07:57; Start 12/25/16 at 14:00 Pharmacy Profile Note 0 ml @ 0 mls/hr UNSCH OTHER ; Start 12/25/16 at 10:00 Vancomycin HCl 1000 mg/Sodium Chloride 250 ml @ 250 mls/hr Q12H IV ; Start 01/31 at 19:00; Status UNV Atorvastatin Calcium (Lipitor) 10 mg HS PO Last administered on 12/26/16 21:58 ; Start 12/25/16 at 21:00 Dorzolamide/ Timolol (Cosopt 2-0.5% Opth Soln) 1 drop BID RIGHT EYE Last administered on 12/27/16 08:00; Start 12/25/16 at 21:00 Escitalopram Oxalate (Lexapro) 10 mg DAILY PO Last administered on 12/27/16 07 :58; Start 12/26/16 at 09:00 Famotidine (Pepcid) 20 mg HS PO Last administered on 12/26/16 21:58; Start 01/31 at 21:00 Ferrous Sulfate (Ferrous Sulfate) 325 mg BIDPC PO Last administered on 07:58; Start 12/25/16 at 18:00 Tamsulosin HCl (Flomax) 0.4 mg DAILY PO Last administered on 12/26/16 10:08; Start 12/26/16 at 09:00; Stop 12/26/16 at 12:42; Status DC Tolterodine Tartrate (Detrol La) 4 mg DAILY PO Last administered on 12/26/16 10:08; Start 12/25/16 at 11:00; Stop 12/26/16 at 12:42; Status DC Dextrose (D50w (Vial) Inj) 50 ml UNSCH PRN IV HYPOGLYCEMIA-SEE COMMENTS; Start 12/25/16 at 10:00 Glucagon (Glucagon Inj) 1 mg UNSCH PRN OTHER HYPOGLYCEMIA-SEE COMMENTS; Start 12/25/16 at 10:00 Insulin Aspart (NovoLOG SUPPLEMENTAL SCALE) 1 ACHS SLIDING SCALE SQ Last administered on 12/26/16 21:57; Start 12/25/16 at 11:00 Vancomycin HCl 1500 mg/Sodium Chloride 515 ml @ 257.5 mls/ hr Q18H IV Last administered on 12/26/16 22:02; Start 12/26/16 at 03:00 Miscellaneous Information SPECIFIC LAB TO BE ... ONCE ONCE .XX ; Start 12/28 at 08:45; Stop 12/28/16 at 08:46 Enoxaparin Sodium (Lovenox Inj) 40 mg Q24H SQ Last administered on 12/26/16 14 :19; Start 12/25/16 at 13:45 Amlodipine Besylate (Norvasc) 10 mg DAILY PO Last administered on 12/27/16 07: 58; Start 12/26/16 at 09:45 Metoprolol Tartrate (Lopressor) 25 mg BID PO Last administered on 12/27/16 07: 58; Start 12/26/16 at 09:45 Tamsulosin HCl (Flomax) 0.4 mg Q12HR PO Last administered on 12/27/16 07:58; Start 12/26/16 at 21:00 A/P Assessment and Plan This is a 86-year-old male past medical history of type 2 diabetes, hypertension , hyperlipidemia, BPH, bed bound who presented with fever Sepsis -Patient meets sepsis criteria with fever, tachycardia, and leukocytosis. -Labs and imaging was obtained. Patient found to have leukocytosis 22,000 and UA suggest UTI. Chest x-ray negative. Urine cultures grew protease mirabilis pending sensitivity. Mild improvement in leukocytosis pending CBC from today. -/ blood cultures show staph coagulase-negative which most likely is contaminant. -Continue with vancomycin and Zosyn pending cultures. Soft heart murmur -Family is unaware of heart murmur. -Pending echo. Type 2 diabetes -Per patient's son patient is noncompliant. It also seemed that patient may have some peripheral neuropathy. -Continue with insulin sliding scope. -Hypoglycemia protocol. Will adjust medication based on blood sugars. Complicated UTI -See treatment as above. Urinary retention -most likely secondary to BPH. At baseline patient wears a diaper. -Renal ultrasound negative. -Urologist consulted. -Poor urologist flomax was increased to twice a day, continue with intermittent and clean tab every 6 hours when necessary, oxybutynin and dextrol LA held. BPH/hyperlipidemia/hypertension -Continue home medication. Oxybutynin and dextrol LA was held. DVT prophylaxis -Lovenox. Discharge Planning Once patient is medically clear for discharge he will go back to his previous SNF with his . At baseline patient is bedridden. Possible discharge tomorrow if blood cultures continued to be negative and sensitive completed. Tawana Powers MD Dec 27, 2016 10:14
[2016-12-27 12:14] LABS: BLOOD GAS BASE EXCESS -4.6 mmol/L (-2-2); BLOOD GAS CARBOXYHEMOGLOBIN 0.8 % (0-4); BLOOD GAS HCO3 23 mmol/L (22-26); BLOOD GAS O2 HGB SATURATION 96 % (90-100); BLOOD GAS PCO2 69 mmHg (38-42); BLOOD GAS PO2 132 mmHg (61-120); BLOOD GAS TOTAL HGB 13.9 G/DL (12.0-16.0); CRITICAL VALUE YES; TEMP CORR TO 98.6
[2016-12-27 12:15] LABS: DRAW SITE RT RADIAL; LITER FLOW 15 L/M; NUMBER OF ARTERIAL PUNCTURES 1; STAT YES; ULNAR PULSE PRESENT
[2016-12-27] MEDS ORDERED: FUROSEMIDE 100 MG/10 ML VIAL IV PUSH ONE (12:15)
--- NOTE | 2016-12-27 12:33 | RADRPT ---
EXAM DATE/TIME: 12/27/2016 12:13 [facility] COMPARISON: CHEST SINGLE AP, December 25, 2016, 7:49. INDICATIONS : Shortness of breath. MEDICAL HISTORY : Hypertension. Diabetes mellitus type II. Gastroesophageal reflux disease. SURGICAL HISTORY : None. ENCOUNTER: Subsequent ACUITY: 3 days PAIN SCORE: Non-responsive. LOCATION: Bilateral chest FINDINGS: 2 AP erect portable views of the chest were obtained and demonstrate new consolidative opacity in the right lower lobe. The heart size remains at the upper limits of normal. There is mild streaky opacit y in the perihilar regions and left lung base. Atherosclerotic changes are present in the aorta. The patient is mildly rotated. There is no definite effusion. Multiple overlying electrocardiogram leads are present. The bony thorax is intact. CONCLUSION: New consolidative opacity in right lower lobe most characteristic of pneumonia.. Maximino Bae MD on December 27, 2016 at 12:29 Board Certified Radiologist. This report was verified electronically.
[2016-12-27] MEDS ORDERED: MIDAZOLAM HCL 5 MG/ML VIAL (1 ML) ONE (13:15)
[2016-12-27] MEDS ORDERED: ROCURONIUM INJ 50 MG/5 ML VIAL ONE (13:15)
--- NOTE | 2016-12-27 13:48 | PD.CONS ---
[facility] Service Critical Care Medicine Consult Requested By Elderly man has developed respiratory acidosis with CO2 narcosis manifesting as respiratory failure and obtundation. He signed a [place] DNR form in 2015 and subsequently he and his son have verbally confirmed this in the past few days. However, a female family member, possibly daughter, was contacted at the home phone number today, and when told of his imminent respiratory failure rescinded the DNR. I have transferred him from the Oncology Floor to [facility] for urgent intubation and mechanical ventilation. CXR shows a new large RLL pneumonia. Primary Care Physician Souleymane Mckinley MD Review of Systems ROS Unobtainable, obtunded. No family. Past Family Social History Allergies: Coded Allergies: No Known Allergies (Unverified , 12/25/16) Past Medical History Past Medical History Cardiovascular Problems: Yes Social History Tobacco Use: No Allergies-Medications Allergies-Medications (Allergen,Severity, Reaction): Coded Allergies: No Known Allergies (Unverified , 12/25/16) Reported Meds & Prescriptions Reported Meds & Active Scripts Active Reported Metoprolol Tartrate 25 Mg Tab 25 Mg PO BID Metformin (Metformin HCl) 500 Mg Tab 500 Mg PO BIDPC With meals Glimepiride 2 Mg Tab 2 Mg PO BIDAC Ferrous Sulfate 325 Mg (65 Mg Iron) Tablet 325 Mg PO BIDPC Dorzolamide-Timolol Opth Drops 22.3-6.8 Mg/Ml Soln 1 Drop RIGHT EYE BID Tamsulosin (Tamsulosin HCl) 0.4 Mg Cap 0.4 Mg PO DAILY Oxybutynin ER 24 HR (Oxybutynin Chloride) 10 Mg Tab 10 Mg PO DAILY Lexapro (Escitalopram Oxalate) 10 Mg Tab 10 Mg PO DAILY Famotidine 20 Mg Tab 20 Mg PO HS Durezol Opth (Difluprednate Opth) 0.05% Emul Atorvastatin (Atorvastatin Calcium) 10 Mg Tab 10 Mg PO HS Amlodipine (Amlodipine Besylate) 10 Mg Tab 10 Mg PO DAILY Physical Exam Vital Signs Vital Signs Date Time Temp Pulse Resp B/P (MAP) Pulse Ox O2 Delivery O2 Flow Rate FiO2 12/27/16 12:45 100 50 12/27/16 12:05 95 15.00 12/27/16 09:28 95 12/27/16 08:00 96.4 87 24 140/69 (92) 93 12/27/16 04:15 96.6 78 19 122/56 (78) 94 12/27/16 04:09 72 12/27/16 00:20 96.0 73 18 132/60 (84) 97 12/27/16 00:04 72 12/26/16 20:15 98.8 82 19 120/59 (79) 97 12/26/16 20:04 100 12/26/16 16:00 97.4 82 16 125/64 (84) 93 Physical Exam P 88, BP 146/72, R 9 shallow, Sats 66% Head: Atraumatic. Neck: Supple, no stridor. Lungs: Poor bilateral air entry, small excursions, slow rate. No wheezes. Heart: NL S1S2, 3/6 systolic murmur. No JVD Abdomen: Large, soft, nondistended, no guarding. Extremities: Minor chronic induration both shins, trace edema ankles. Neuro: Withdraws 4 limbs to noxious stimulation, Pupils 3 mm, sluggish reaction. Does not focus or track. Gag intact. Laboratory Laboratory Tests Test 12/27/16 08:41 12/27/16 11:52 Creatinine 0.81 Estimat Glomerular Filtration Rate 90 Blood Gas Puncture Site RT RADIAL Blood Gas Patient Temperature 98.6 Blood Gas HCO3 23 Blood Gas Base Excess -4.6 Blood Gas Oxygen Saturation 96 Arterial Blood pH 7.15 Arterial Blood Partial Pressure CO2 69 Arterial Blood Partial Pressure O2 132 Arterial Blood Oxygen Content 19.0 Arterial Blood Carboxyhemoglobin 0.8 Arterial Blood Methemoglobin 1.0 Blood Gas Hemoglobin 13.9 Oxygen Delivery Device Non-Rebreathing Mask Blood Gas Liter Flow 15 Date/Time Source Procedure Growth Status 12/25/16 07:00 Blood Peripheral Aerobic Blood Culture - Preliminary NO GROWTH IN 2 DAYS Resulted 12/25/16 07:00 Blood Peripheral Anaerobic Blood Culture - Preliminary NO GROWTH IN 2 DAYS Resulted 12/25/16 07:25 Nasal Washing Influenza Types A,B Antigen (LISA) - Final Complete 12/25/16 08:04 Urine Random Urine Urine Culture - Preliminary Proteus Mirabilis Resulted Result Diagram: 12/26/16 1056 12/27/16 0841 Imaging CXR: RLL pneumonia Assessment and Plan Assessment and Plan Assessment: 1. Hypercapneic Respiratory Failure. 2. UTI. 3. DM, Type 2 Plan: 1. PRVC vent mode. 2. ABG after 1 hour. 3. Continue broad abx coverage, narrow after C&S -> Urine Proteus 4. Propofol prn sedation. 5. Honeycutt. 6. Pepcid. 7. Lovenox DVT px. 8. Reconcile code status with family. Overall impression: Critically ill with acute respiratory failure requiring emergency intubation and mechanical ventilation. Critical care 43 mins aside from procedure. Zana Hernandez MD Dec 27, 2016 13:48
--- NOTE | 2016-12-27 14:02 | PD.PROCEDR ---
Procedure Note Procedure DX: Respiratory Failure (J96.02) OP: Orotracheal Intubation (50052) Procedure: Bag mask ventilation. Versed 5 mg and rocuronium 100 mg iv. Intubated orally with 8.0 tube. Position confirmed with CO2 detection, breath sounds, sats 100%. CXR ordered, will review. Zana Hernandez MD Dec 27, 2016 14:02
[2016-12-27 14:36] LABS: BLOOD GAS BASE EXCESS -2.9 mmol/L (-2-2); BLOOD GAS CARBOXYHEMOGLOBIN 0.9 % (0-4); BLOOD GAS HCO3 22 mmol/L (22-26); BLOOD GAS METHEMOGLOBIN 0.7 % (0-2); BLOOD GAS O2 HGB SATURATION 98 % (90-100); BLOOD GAS OXYGEN CONTENT 18.5 Vol % (12.0-20.0); BLOOD GAS PCO2 44 mmHg (38-42); BLOOD GAS PO2 266 mmHg (61-120); TEMP CORR TO 98.6
[2016-12-27 14:37] LABS: CRITICAL VALUE NO; FIO2 100 %; OXYGEN DEVICE VENTILATOR
[2016-12-27 14:38] LABS: DRAW SITE LT RADIAL; NUMBER OF ARTERIAL PUNCTURES 1; STAT NO; ULNAR PULSE PRESENT
[2016-12-27] MEDS: ENOXAPARIN SODIUM 40 MG/0.4 ML SYRINGE SQ SCH (14:52)
[2016-12-27] MEDS: PROPOFOL 1000 MG/100 ML INJ 100 ML IV PRN ×2 (14:53→18:22)
[2016-12-27] MEDS: VANCOMYCIN 1,500 MG/NS 500 ML IV SCH ×2 (16:18)
--- NOTE | 2016-12-27 16:26 | RADRPT ---
EXAM DATE/TIME: 12/27/2016 15:16 [facility] COMPARISON: CHEST SINGLE AP, December 27, 2016, 12:13. INDICATIONS : Post intubation. MEDICAL HISTORY : Hypertension. Diabetes mellitus type II. Gastroesophageal reflux disease. SURGICAL HISTORY : None. ENCOUNTER: Subsequent ACUITY: 3 days PAIN SCORE: Non-responsive. LOCATION: Bilateral chest FINDINGS: An endotracheal tube has its tip 1 cm above the monse. This could be pulled back 2 cm for more opti mal positioning. Bibasilar and perihilar infiltrates are again noted and are unchanged. A nasogastr ic tube has its tip below the diaphragm. The heart is stable. CONCLUSION: 1. Stable bibasilar and perihilar infiltrates consistent with pulmonary edema versus pneumonia. Clin ical correlation is recommended. 2. Endotracheal tube has its tip 1 cm above the monse. This could be pulled back 2 cm for optimal p ositioning. Nicolas Cardenas MD on December 27, 2016 at 16:10 Board Certified Radiologist. This report was verified electronically.
[2016-12-27] MEDS: CHLORHEXIDINE 0.12% (ORAL KIT) 15 ML CUP MT SCH (20:00)
[2016-12-27] MEDS: ATORVASTATIN 10 MG TAB PO SCH (21:00)
[2016-12-27] MEDS: FAMOTIDINE 20 MG TAB PO SCH (21:00)
[2016-12-27 23:38] LABS: BICARBONATE 21.2 MEQ/L (21.0-32.0)
[2016-12-28] VITALS (21 sets, daily range): BP systolic 130–156; BP diastolic 60–74; PULSE 59–79; RESP 14–20; TEMP 97.9–98.5; O2SAT 97–100
[2016-12-28] MEDS: PROPOFOL 1000 MG/100 ML INJ 100 ML IV PRN ×2 (00:08→06:17)
--- NOTE | 2016-12-28 01:23 | RADRPT ---
EXAM DATE/TIME: 12/28/2016 01:01 [facility] COMPARISON: No previous studies available for comparison. INDICATIONS : Altered. Dilated right pupil. RADIATION DOSE: 37.12 CTDIvol (mGy) ; Patient motion MEDICAL HISTORY : Hypertension. Diabetes. SURGICAL HISTORY : None. ENCOUNTER: Initial ACUITY: 1 day PAIN SCALE: Non-responsive LOCATION: cranial TECHNIQUE: Multiple contiguous axial images were obtained of the head. Using automated exposure control and adj ustment of the mA and/or kV according to patient size, radiation dose was kept as low as reasonably a chievable to obtain optimal diagnostic quality images. DICOM format image data is available electro nically for review and comparison. FINDINGS: CEREBRUM: The ventricles are normal for age. No evidence of midline shift, mass lesion, hemorrhage or acute in farction. No extra-axial fluid collections are seen. POSTERIOR FOSSA: The cerebellum and brainstem are intact. The 4th ventricle is midline. The cerebellopontine angle i s unremarkable. EXTRACRANIAL: The visualized portion of the orbits is intact. SKULL: The calvaria is intact. No evidence of skull fracture. CONCLUSION: 1. No acute findings. Chronic white matter ischemic changes. Mucosal thickening ethmoid air cells. Kb Hendrix MD on December 28, 2016 at 1:19 Board Certified Radiologist. This report was verified electronically.
[2016-12-28] MEDS: PIPERACIL-TAZO 3.375 GM PREMIX 50 ML IV SCH ×4 (01:35→20:29)
[2016-12-28 05:46] LABS: HEMATOCRIT 38.8 % (39.0-51.0); MEAN CELL VOLUME 92.7 FL (80.0-100.0); MEAN CORPUSCULAR HEMOGLOBIN 31.1 PG (27.0-34.0); MEAN CORPUSCULAR HGB CONC 33.5 % (32.0-36.0); PLATELET COUNT 160 TH/MM3 (150-450); RED BLOOD COUNT 4.18 MIL/MM3 (4.50-5.90); RED CELL DISTRIBUTION WIDTH 13.6 % (11.6-17.2); WHITE BLOOD COUNT 11.4 TH/MM3 (4.0-11.0)
[2016-12-28 05:59] LABS: REVIEW FLAG FINAL
[2016-12-28 06:06] LABS: BICARBONATE 27.7 MEQ/L (21.0-32.0); POTASSIUM 3.3 MEQ/L (3.5-5.1)
--- NOTE | 2016-12-28 06:18 | RADRPT ---
EXAM DATE/TIME: 12/28/2016 05:36 [facility] COMPARISON: CHEST SINGLE AP, December 27, 2016, 15:16. INDICATIONS : Shortness of breath. MEDICAL HISTORY : Hypertension. Diabetes, Benign prostatic hyperplasia, (BPH) GERD, Anemia. Depression SURGICAL HISTORY : Right leg surgery ENCOUNTER: Subsequent ACUITY: 3 days PAIN SCORE: Non-responsive. LOCATION: Bilateral chest FINDINGS: A single view of the chest demonstrates endotracheal tube in good position. NG enters stomach. Bilate ral mostly basilar airspace disease with probable small effusions. No pneumothorax. CONCLUSION: 1. Endotracheal tube and nasogastric tube in good position. Basilar airspace disease similar to Septe mber 12. Kb Hendrix MD on December 28, 2016 at 6:15 Board Certified Radiologist. This report was verified electronically.
[2016-12-28] MEDS: CHLORHEXIDINE 0.12% (ORAL KIT) 15 ML CUP MT SCH ×2 (07:42→20:00)
[2016-12-28] MEDS: INSULIN ASPART SUPPLEMENTAL SCALE SQ SCH ×4 (07:42→21:00)
[2016-12-28] MEDS ORDERED: PHARMACY ORDERED LAB ONE (08:45)
[2016-12-28] MEDS: VANCOMYCIN 1,500 MG/NS 500 ML IV SCH ×2 (08:54)
[2016-12-28] MEDS: SODIUM CHLORIDE 0.9% FLUSH 10 ML FLUSH IV FLUSH SCH ×2 (08:55→20:29)
[2016-12-28] MEDS: DOCUSATE SODIUM 50 MG/SENNA 8.6 MG TAB PO SCH ×2 (08:55→21:00)
[2016-12-28] MEDS: FERROUS SULFATE 325 MG (65 MG ELEMENTAL IRON) TAB PO SCH ×2 (08:55→18:00)
[2016-12-28] MEDS: METOPROLOL TARTRATE 25 MG TAB PO SCH ×2 (08:55→20:30)
[2016-12-28] MEDS: DORZOLAMIDE/TIMOLOL OPTH SOLN 10 ML BTL RIGHT EYE SCH ×2 (08:55→23:22)
[2016-12-28] MEDS: ESCITALOPRAM OXALATE 10 MG TAB PO SCH (08:55)
[2016-12-28] MEDS: TAMSULOSIN HCL 0.4 MG CAP PO SCH ×2 (08:56→20:29)
--- NOTE | 2016-12-28 09:46 | HHI.CCPN ---
Subjective Remarks/Hospital Course Elderly man has developed respiratory acidosis with CO2 narcosis manifesting as respiratory failure and obtundation. He signed a [place] DNR form in 2014 and subsequently he and his son have verbally confirmed this in the past few days. However, a female family member, possibly daughter, was contacted at the home phone number today, and when told of his imminent respiratory failure rescinded the DNR. I have transferred him from the Oncology Floor to [facility] for urgent intubation and mechanical ventilation. CXR shows a new large RLL pneumonia. 12/28: Gas exchange has improved. Pneumonia persists. We need to clarify care goals with family before we extubate. Objective Vital Signs Date Time Temp Pulse Resp B/P (MAP) Pulse Ox O2 Delivery O2 Flow Rate FiO2 12/28/16 08:10 50 12/28/16 08:00 97.9 76 20 156/74 (101) 99 12/27/16 12:05 15.00 12/25/16 12:55 Nasal Cannula Intake and Output 12/28/16 12/28/16 12/29/16 08:00 16:00 00:00 Intake Total 336 ml Output Total 1450 ml Balance -1114 ml Result Diagram: 12/28/16 0427 12/28/16 0427 Other Results Laboratory Tests Test 12/27/16 11:52 12/27/16 14:20 Blood Gas Puncture Site RT RADIAL LT RADIAL Blood Gas Patient Temperature 98.6 98.6 Blood Gas HCO3 23 mmol/L (22-26) 22 mmol/L (22-26) Blood Gas Base Excess -4.6 mmol/L (-2-2) -2.9 mmol/L (-2-2) Blood Gas Oxygen Saturation 96 % (90-100) 98 % (90-100) Arterial Blood pH 7.15 (7.380-7.420) 7.32 (7.380-7.420) Arterial Blood Partial Pressure CO2 69 mmHg (38-42) 44 mmHg (38-42) Arterial Blood Partial Pressure O2 132 mmHg (61-120) 266 mmHg (61-120) Arterial Blood Oxygen Content 19.0 Vol % (12.0-20.0) 18.5 Vol % (12.0-20.0) Arterial Blood Carboxyhemoglobin 0.8 % (0-4) 0.9 % (0-4) Arterial Blood Methemoglobin 1.0 % (0-2) 0.7 % (0-2) Blood Gas Hemoglobin 13.9 G/DL (12.0-16.0) 13.0 G/DL (12.0-16.0) Oxygen Delivery Device Non-Rebreathing Mask VENTILATOR Blood Gas Liter Flow 15 L/M Blood Gas Ventilator Setting Blood Gas Inspired Oxygen 100 % Imaging CXR: RLL pneumonia Objective Remarks Head: Atraumatic. Neck: Supple, no stridor. Lungs: Scattered rhonchi, good gareth air movement. Heart: NL S1S2, 3/6 systolic murmur. No JVD Abdomen: Large, soft, nondistended, no guarding. BS active. Extremities: Minor chronic induration both shins, trace edema ankles. Neuro: Withdraws 4 limbs to noxious stimulation, Pupils 3 mm Does not focus or track. Gag intact. Opens eyes to voice. A/P Assessment and Plan Assessment: 1. Hypercapneic Respiratory Failure. 2. UTI. 3. DM, Type 2 4. Right lung pneumonia. Plan: 1. PRVC vent mode. 2. ABG after 1 hour. 3. Continue broad abx coverage, narrow after C&S -> Urine Proteus 4. Propofol prn sedation. 5. Honeycutt. 6. Pepcid. 7. Lovenox DVT px. 8. Reconcile code status with family. 9. Review sputum culture. Overall impression: Critically ill with acute respiratory failure requiring emergency intubation and mechanical ventilation. Unable to wean ventilator today. Critical care 38 mins Zana Hernandez MD Dec 28, 2016 09:46
[2016-12-28] MEDS: ENOXAPARIN SODIUM 40 MG/0.4 ML SYRINGE SQ SCH (13:58)
[2016-12-28] MEDS: FAMOTIDINE 20 MG TAB PO SCH (21:00)
[2016-12-28] MEDS: ATORVASTATIN 10 MG TAB PO SCH (21:00)
[2016-12-28] MEDS ORDERED: POTASSIUM CHLOR 40 MEQ PREMIX 100 ML IV PRN ×2 (23:30)
[2016-12-28] MEDS ORDERED: POTASSIUM PHOSPHATE MONOBASIC 500 MG TAB PO/TUBE PRN (23:30)
[2016-12-28] MEDS ORDERED: MAGNESIUM SULFATE INJ 4 GM in SODIUM CHLORIDE 0.9% INJ 92 ML IV PRN (23:30)
[2016-12-28] MEDS ORDERED: MAGNESIUM SULFATE INJ 2 GM in SODIUM CHLORIDE 0.9% INJ 96 ML IV PRN (23:30)
[2016-12-28] MEDS ORDERED: SODIUM PHOSPHATE INJ 30 MMOL in SODIUM CHLOR 0.9% 250 ML INJ 240 ML IV PRN (23:30)
[2016-12-28] MEDS ORDERED: POTASSIUM PHOSPHATE INJ 30 MMOL in SODIUM CHLOR 0.9% 250 ML INJ 250 ML IV PRN (23:30)
[2016-12-28] MEDS ORDERED: POTASSIUM CHLOR 20 MEQ PREMIX 100 ML IV PRN (23:30)
[2016-12-28] MEDS ORDERED: POTASSIUM PHOSPHATE MONOBASIC 500 MG TAB PO PRN (23:30)
[2016-12-28] MEDS ORDERED: MAGNESIUM OXIDE 400 MG TAB PO PRN (23:30)
[2016-12-28] MEDS: POTASSIUM CHLOR 20 MEQ PREMIX 100 ML IV PRN (23:44)
[2016-12-29] VITALS (18 sets, daily range): BP systolic 123–148; BP diastolic 57–63; PULSE 51–73; RESP 14–16; TEMP 97.7–99.1; O2SAT 97–100
[2016-12-29] MEDS: PROPOFOL 1000 MG/100 ML INJ 100 ML IV PRN ×4 (00:27→19:22)
[2016-12-29] MEDS: PIPERACIL-TAZO 3.375 GM PREMIX 50 ML IV SCH ×4 (02:03→20:57)
[2016-12-29] MEDS ORDERED: PHARMACY ORDERED LAB ONE (02:45)
[2016-12-29] MEDS: POTASSIUM CHLOR 20 MEQ PREMIX 100 ML IV PRN ×2 (03:05→06:58)
[2016-12-29] MEDS: VANCOMYCIN 1,500 MG/NS 500 ML IV SCH ×2 (04:45)
[2016-12-29 05:06] LABS: AUTOMATED NEUTROPHIL # 6.9 TH/MM3 (1.8-7.7); BASOPHIL % 0.5 % (0.0-2.0); EOSINOPHIL # 0.3 TH/MM3 (0-0.4); EOSINOPHIL % 2.7 % (0.0-4.0); HEMATOCRIT 38.9 % (39.0-51.0); HEMO FLAGS DIFF FINAL; LYMPH % 11.4 % (9.0-44.0); LYMPHOCYTE # 1.1 TH/MM3 (1.0-4.8); MEAN CELL VOLUME 92.4 FL (80.0-100.0); MEAN CORPUSCULAR HEMOGLOBIN 31.2 PG (27.0-34.0); MEAN CORPUSCULAR HGB CONC 33.8 % (32.0-36.0); MONO % 13.7 % (0.0-8.0); NEUT % 71.7 % (16.0-70.0); PLATELET COUNT 166 TH/MM3 (150-450); RED BLOOD COUNT 4.21 MIL/MM3 (4.50-5.90); RED CELL DISTRIBUTION WIDTH 13.6 % (11.6-17.2); WHITE BLOOD COUNT 9.6 TH/MM3 (4.0-11.0)
[2016-12-29 05:29] LABS: BICARBONATE 32.1 MEQ/L (21.0-32.0); MAGNESIUM 1.9 MG/DL (1.5-2.5); POTASSIUM 3.1 MEQ/L (3.5-5.1)
--- NOTE | 2016-12-29 07:58 | HHI.CCPN ---
Subjective Remarks/Hospital Course Elderly man has developed respiratory acidosis with CO2 narcosis manifesting as respiratory failure and obtundation. He signed a [place] DNR form in 2014 and subsequently he and his son have verbally confirmed this in the past few days. However, a female family member, possibly daughter, was contacted at the home phone number today, and when told of his imminent respiratory failure rescinded the DNR. I have transferred him from the Oncology Floor to [facility] for urgent intubation and mechanical ventilation. CXR shows a new large RLL pneumonia. 12/28: Gas exchange has improved. Pneumonia persists. We need to clarify care goals with family before we extubate. 12/29: Abdomen more distended, NG output in liters. No BM. Gas exchange has improved. Objective Vital Signs Date Time Temp Pulse Resp B/P (MAP) Pulse Ox O2 Delivery O2 Flow Rate FiO2 12/29/16 07:48 99 40 12/29/16 06:00 57 12/29/16 04:00 98.1 14 148/63 (91) 12/27/16 12:05 15.00 12/27/16 12:05 Non-Rebreather Intake and Output 12/29/16 12/29/16 12/30/16 08:00 16:00 00:00 Intake Total 704 ml Output Total 1100 ml Balance -396 ml Result Diagram: 12/29/1642312/29/16423 Imaging CXR: RLL pneumonia Objective Remarks Head: Atraumatic. Neck: Supple, no stridor. Lungs: Few rhonchi, good gareth air movement. Heart: NL S1S2, 2/6 systolic murmur. No JVD Abdomen: Large, voluntary guarding, distended, no guarding. BS few. Extremities: Minor chronic induration both shins, trace edema ankles. Neuro: Withdraws 4 limbs to stimulation, Pupils 3 mm Does focus and track. Gag intact. Opens eyes to voice. A/P Assessment and Plan Assessment: 1. Hypercapneic Respiratory Failure. 2. UTI. 3. DM, Type 2 4. Right lung pneumonia. Plan: 1. PRVC vent mode. 2. LFTs 3. Continue broad abx coverage, narrow after C&S -> Urine Proteus 4. Propofol prn sedation. 5. Honeycutt. 6. Pepcid. 7. Lovenox DVT px. 8. Reconcile code status with family. 9. Review sputum culture. 10. CT abdomen for distention Overall impression: Critically ill with upper GI bleed now complicating care. Abdomen more distended today. Unable to wean ventilator today. Critical care 39 mins Zana Hernandez MD Dec 29, 2016 07:58
[2016-12-29] MEDS: INSULIN ASPART SUPPLEMENTAL SCALE SQ SCH ×4 (08:00→21:00)
[2016-12-29] MEDS: CHLORHEXIDINE 0.12% (ORAL KIT) 15 ML CUP MT SCH ×2 (08:00→20:58)
[2016-12-29] MEDS ORDERED: SODIUM CHLOR 0.9% 1000 ML INJ 1,000 ML IV ONE (08:00)
[2016-12-29] MEDS: POTASSIUM CHLORIDE 25 MEQ EFFERVESCENT TAB PO PRN (08:12)
[2016-12-29] MEDS: SODIUM CHLORIDE 0.9% FLUSH 10 ML FLUSH IV FLUSH SCH ×2 (08:13→20:58)
[2016-12-29] MEDS: METOPROLOL TARTRATE 25 MG TAB PO SCH ×2 (08:13→21:13)
[2016-12-29] MEDS: DOCUSATE SODIUM 50 MG/SENNA 8.6 MG TAB PO SCH ×2 (08:13→20:57)
[2016-12-29] MEDS: ESCITALOPRAM OXALATE 10 MG TAB PO SCH (08:13)
[2016-12-29] MEDS: FERROUS SULFATE 325 MG (65 MG ELEMENTAL IRON) TAB PO SCH ×2 (08:14→17:51)
[2016-12-29] MEDS: TAMSULOSIN HCL 0.4 MG CAP PO SCH ×2 (08:14→20:50)
[2016-12-29] MEDS: DORZOLAMIDE/TIMOLOL OPTH SOLN 10 ML BTL RIGHT EYE SCH ×2 (08:14→20:58)
[2016-12-29] MEDS: NS + KCL 20 MEQ INJ 1,000 ML IV SCH ×2 (08:53→18:24)
[2016-12-29] MEDS ORDERED: DIATRIZOATE MEGLUM/DIATRIZOATE SOD 9 ML CUP PO ONE ×2 (09:15→11:00)
[2016-12-29] MEDS ORDERED: IOHEXOL 350 MG/ML 10 ML VIAL (for RAD DIAG) IVCONTRAST ONE (12:25)
--- NOTE | 2016-12-29 14:29 | RADRPT ---
EXAM DATE/TIME: 12/29/2016 12:15 [facility] COMPARISON: CT BRAIN W/O CONTRAST, December 28, 2016, 1:01. INDICATIONS : Abdominal distention IV CONTRAST: 86 cc Omnipaque 350 (iohexol) IV ORAL CONTRAST: No oral contrast ingested. RADIATION DOSE: 16.93 CTDIvol (mGy) MEDICAL HISTORY : Hypertension. Diabetes SURGICAL HISTORY : None. ENCOUNTER: Initial ACUITY: 1 day PAIN SCALE: Non-responsive LOCATION: abdomen TECHNIQUE: Volumetric scanning of the abdomen and pelvis was performed. Using automated exposure control and ad justment of the mA and/or kV according to patient size, radiation dose was kept as low as reasonably achievable to obtain optimal diagnostic quality images. DICOM format image data is available electro nically for review and comparison. FINDINGS: The limited portion of the lung base visualized demonstrates mild atelectatic changes and small bibas ilar effusions. Examination of the liver demonstrates a 2.8 x 2.0 cm cyst within the dome of the liver. The liver is somewhat small and demonstrates heterogeneous enhancement suggesting possible cirrhosis. The spleen i s normal in size. There is no ascites. The pancreas and adrenal glands are normal in appearance. There are small simple cyst within the kidn eys bilaterally. The examination demonstrates a 7.8 x 5.3 cm cystic mass in the retroperitoneum on the right. I believ e this communicates with an arises from the right ureter. This possibly represents the sequelae of an old ureteral injury. Retrograde examination would be of benefit for further assessment. The visualized loops of small and large bowel are normal in appearance. No free fluid is seen. No mauricio e intraperitoneal air is identified. Imaging through the pelvis demonstrates a Honeycutt catheter within the bladder. No iliac or inguinal [place] nopathy is seen. The prostate is enlarged measuring 6.3 x 5.4 cm. There degenerative changes throughout the spine. CONCLUSION: 1. There is a 7.8 x 5.4 cm fluid collection in the retroperitoneum on the right this arises from the proximal right ureter. It measures only 12 Hounsfield units. This may be the sequelae of an old urete ral injury. Retrograde evaluation of the ureter would be of benefit for further assessment. 2. No findings to indicate bowel obstruction identified. No free air or free fluid is present. 3. Small bibasilar effusions and consolidative changes within the lung bases. 4. 2.8 x 2.0 cm cyst within the liver. 5. Heterogeneous enhancement of the liver suggesting underlying hepatocellular disease. Jarred Cam MD on December 29, 2016 at 14:22 Board Certified Radiologist. This report was verified electronically.
[2016-12-29] MEDS ORDERED: MAGNESIUM CITRATE SOLN 300 ML BTL PO ONE (16:15)
[2016-12-29] MEDS: METOCLOPRAMIDE HCL 10 MG/2 ML VIAL IV PUSH SCH ×2 (17:51→20:58)
[2016-12-29] MEDS: ATORVASTATIN 10 MG TAB PO SCH (20:57)
[2016-12-29] MEDS: FAMOTIDINE 20 MG TAB PO SCH (20:57)
[2016-12-30] VITALS (15 sets, daily range): BP systolic 132–173; BP diastolic 60–77; PULSE 56–83; RESP 14–24; TEMP 97.5–98.4; O2SAT 93–100
[2016-12-30] MEDS: PROPOFOL 1000 MG/100 ML INJ 100 ML IV PRN (00:48)
[2016-12-30] MEDS: NS + KCL 20 MEQ INJ 1,000 ML IV SCH ×2 (00:48→11:32)
[2016-12-30] MEDS: PIPERACIL-TAZO 3.375 GM PREMIX 50 ML IV SCH ×3 (01:02→13:54)
[2016-12-30] MEDS: METOCLOPRAMIDE HCL 10 MG/2 ML VIAL IV PUSH SCH ×3 (05:20→20:36)
[2016-12-30 07:31] LABS: ALKALINE PHOSPHATASE 64 U/L (45-117); ALT (GPT) 16 U/L (12-78); ANION GAP 11 MEQ/L (5-15); AST (GOT) 19 U/L (15-37); BICARBONATE 28.3 MEQ/L (21.0-32.0); BLOOD UREA NITROGEN 12 MG/DL (7-18); CHLORIDE 109 MEQ/L (98-107); GLOMERULAR FILTRATION RATE 80 ML/MIN (>89); POTASSIUM 3.4 MEQ/L (3.5-5.1); SODIUM (NA) 148 MEQ/L (136-145); TOTAL BILIRUBIN ADULT 0.5 MG/DL (0.2-1.0)
[2016-12-30] MEDS: INSULIN ASPART SUPPLEMENTAL SCALE SQ SCH (08:00)
[2016-12-30] MEDS: CHLORHEXIDINE 0.12% (ORAL KIT) 15 ML CUP MT SCH ×2 (08:00→20:36)
[2016-12-30] MEDS: POTASSIUM CHLORIDE 25 MEQ EFFERVESCENT TAB PO PRN (08:07)
[2016-12-30] MEDS: METOPROLOL TARTRATE 25 MG TAB PO SCH ×2 (08:07→20:36)
[2016-12-30] MEDS: FERROUS SULFATE 325 MG (65 MG ELEMENTAL IRON) TAB PO SCH ×2 (08:08→17:39)
[2016-12-30] MEDS: TAMSULOSIN HCL 0.4 MG CAP PO SCH ×2 (08:08→20:36)
[2016-12-30] MEDS: SODIUM CHLORIDE 0.9% FLUSH 10 ML FLUSH IV FLUSH SCH ×2 (08:08→21:00)
[2016-12-30] MEDS: DOCUSATE SODIUM 50 MG/SENNA 8.6 MG TAB PO SCH ×2 (08:08→20:37)
[2016-12-30] MEDS: ESCITALOPRAM OXALATE 10 MG TAB PO SCH (08:08)
[2016-12-30] MEDS: DORZOLAMIDE/TIMOLOL OPTH SOLN 10 ML BTL RIGHT EYE SCH ×2 (08:09→21:10)
--- NOTE | 2016-12-30 09:13 | HHI.CCPN ---
Subjective Remarks/Hospital Course Elderly man has developed respiratory acidosis with CO2 narcosis manifesting as respiratory failure and obtundation. He signed a [place] DNR form in 2014 and subsequently he and his son have verbally confirmed this in the past few days. However, a female family member, possibly daughter, was contacted at the home phone number today, and when told of his imminent respiratory failure rescinded the DNR. I have transferred him from the Oncology Floor to [facility] for urgent intubation and mechanical ventilation. CXR shows a new large RLL pneumonia. 12/28: Gas exchange has improved. Pneumonia persists. We need to clarify care goals with family before we extubate. 12/29: Abdomen more distended, NG output in liters. No BM. Gas exchange has improved. 12/30: CT abdomen benign. Passing stool now. Stronger on SBTs. Try to extubate. Patient is now Intubate Only, no compressions or drugs for arrest. Objective Vital Signs Date Time Temp Pulse Resp B/P (MAP) Pulse Ox O2 Delivery O2 Flow Rate FiO2 12/30/16 08:25 93 Nasal Cannula 4 12/30/16 06:00 59 12/30/16 04:00 97.5 15 137/65 (89) 12/30/16 04:00 40 Intake and Output 12/30/16 12/30/16 12/31/16 08:00 16:00 00:00 Intake Total 1430 ml Output Total 745 ml Balance 685 ml Result Diagram: 12/29/16 0424 12/30/16 0525 Other Results Microbiology Date/Time Source Procedure Growth Status 12/27/16 18:53 Sputum Endotracheal Gram Stain - Final Complete 12/27/16 18:53 Sputum Endotracheal Sputum Culture - Final MODERATE GROWTH NORMAL RESPIRATORY MAJNU Complete Imaging CXR: RLL pneumonia Objective Remarks Head: Atraumatic. Neck: Supple, no stridor. Lungs: Few rhonchi, good gareth air movement. Heart: NL S1S2, 2/6 systolic murmur. No JVD Abdomen: Large, voluntary guarding, distended, no guarding. BS active. Extremities: Minor chronic induration both shins, trace edema ankles. Neuro: Withdraws 4 limbs to stimulation, Pupils 3 mm. Does focus and track. Gag intact. Opens eyes to voice. A/P Assessment and Plan Assessment: 1. Hypercapneic Respiratory Failure. 2. UTI. 3. DM, Type 2 4. Right lung pneumonia. Plan: 1. PRVC vent mode. 2. LFTs 3. Continue broad abx coverage, narrow after C&S -> Urine Proteus 4. Propofol prn sedation. 5. Honeycutt. 6. Pepcid. 7. Lovenox DVT px. 8. Reconcile code status with family -> Intubate Only. 9. Review sputum culture. 10. CT abdomen for distention Overall impression: Family recognizes his end-stage status. We will extubate and re-intubate for distress but no CPR. Zana Hernandez MD Dec 30, 2016 09:13
[2016-12-30] MEDS: FAMOTIDINE 20 MG TAB PO SCH (20:37)
[2016-12-30] MEDS: ATORVASTATIN 10 MG TAB PO SCH (20:37)
[2016-12-31] VITALS (13 sets, daily range): BP systolic 138–151; BP diastolic 62–70; PULSE 67–90; RESP 15–20; TEMP 97.7–98.8; O2SAT 96–100
[2016-12-31] MEDS: NS + KCL 20 MEQ INJ 1,000 ML IV SCH ×3 (01:30→14:06)
[2016-12-31] MEDS: METOCLOPRAMIDE HCL 10 MG/2 ML VIAL IV PUSH SCH ×3 (05:54→21:12)
[2016-12-31] MEDS: CHLORHEXIDINE 0.12% (ORAL KIT) 15 ML CUP MT SCH ×2 (08:00→20:00)
[2016-12-31] MEDS: DORZOLAMIDE/TIMOLOL OPTH SOLN 10 ML BTL RIGHT EYE SCH ×2 (08:59→21:09)
[2016-12-31] MEDS: ESCITALOPRAM OXALATE 10 MG TAB PO SCH (08:59)
[2016-12-31] MEDS: METOPROLOL TARTRATE 25 MG TAB PO SCH ×2 (08:59→21:10)
[2016-12-31] MEDS: SODIUM CHLORIDE 0.9% FLUSH 10 ML FLUSH IV FLUSH SCH ×2 (08:59→21:09)
[2016-12-31] MEDS: DOCUSATE SODIUM 50 MG/SENNA 8.6 MG TAB PO SCH ×2 (08:59→21:11)
[2016-12-31] MEDS: FERROUS SULFATE 325 MG (65 MG ELEMENTAL IRON) TAB PO SCH ×2 (08:59→18:00)
[2016-12-31] MEDS: TAMSULOSIN HCL 0.4 MG CAP PO SCH ×2 (08:59→21:10)
--- NOTE | 2016-12-31 11:46 | HHI.PR ---
Subjective Remarks Follow up for respiratory failure, UTI. Patient is currently resting in bed, on nasal cannula. Daughter from [place] came to visit. Patient reports no fever, chills. Objective Vitals Vital Signs Date Time Temp Pulse Resp B/P (MAP) Pulse Ox O2 Delivery O2 Flow Rate FiO2 12/31/16 09:59 98 Nasal Cannula 3.00 12/31/16 08:00 80 12/31/16 08:00 98.4 80 17 151/66 (94) 97 12/31/16 07:00 98 Nasal Cannula 4.00 12/31/16 06:00 90 12/31/16 04:00 84 12/31/16 04:00 98.8 81 19 145/70 (95) 98 12/31/16 02:00 84 12/31/16 00:00 84 12/31/16 00:00 98.7 82 20 139/63 (88) 96 12/30/16 22:00 83 12/30/16 20:30 100 Nasal Cannula 3.00 12/30/16 20:00 98.2 71 18 151/66 (94) 98 12/30/16 20:00 94 Nasal Cannula 4.00 12/30/16 20:00 71 12/30/16 18:00 69 12/30/16 16:00 97.7 73 19 144/67 (92) 97 12/30/16 16:00 70 12/30/16 14:00 65 12/30/16 12:00 67 12/30/16 12:00 97.6 68 21 132/60 (84) 98 I/O 12/30/16 12/30/16 12/30/16 12/31/16 12/31/16 12/31/16 07:00 15:00 23:00 07:00 15:00 23:00 Intake Total 1430 ml 1150 ml 150 ml 1100 ml Output Total 745 ml 1000 ml 1500 ml Balance 685 ml 1150 ml -850 ml -400 ml Intake Oral 100 ml IV Total 1430 ml 1150 ml 50 ml 1000 ml Tube Irrigant 100 ml Output Urine Total 425 ml 1000 ml 1500 ml Stool Total 100 ml Gastric Drainage Total 220 ml # Bowel Movements 3 0 Result Diagram: 12/29/16 0424 12/31/16 0619 Imaging Last Impressions Abdomen/Pelvis CT 12/29/16 0000 Signed Impressions: Service Date/Time: December 12:15 - CONCLUSION: 1. There is a 7.8 x 5.4 cm fluid collection in the retroperitoneum on the right this arises from the proximal right ureter. It measures only 12 Hounsfield units. This may be the sequelae of an old ureteral injury. Retrograde evaluation of the ureter would be of benefit for further assessment. 2. No findings to indicate bowel obstruction identified. No free air or free fluid is present. 3. Small bibasilar effusions and consolidative changes within the lung bases. 4. 2.8 x 2.0 cm cyst within the liver. 5. Heterogeneous enhancement of the liver suggesting underlying hepatocellular disease. Jarred Cam MD Chest X-Ray 12/28/16 0400 Signed Impressions: Service Date/Time: Wednesday, December 28, 2016 05:36 - CONCLUSION: 1. Endotracheal tube and nasogastric tube in good position. Basilar airspace disease similar to December 27. Kb Hendrix MD Head CT 12/28/16 0000 Signed Impressions: Service Date/Time: Wednesday, December 28, 2016 01:01 - CONCLUSION: 1. No acute findings. Chronic white matter ischemic changes. Mucosal thickening ethmoid air cells. Kb Hendrix MD Renal Ultrasound 12/26/16 0000 Signed Impressions: Service Date/Time: Monday, December 26, 2016 14:22 - CONCLUSION: Negative hydronephrosis. Silvio Cam MD FACR Objective Remarks GENERAL: Alert, NAD. SKIN: Warm and dry. HEAD: Normocephalic. EYES: No scleral icterus. No injection or drainage. NECK: Supple, trachea midline. No JVD or lymphadenopathy. CARDIOVASCULAR: Regular rate and rhythm without murmurs, gallops, or rubs. RESPIRATORY: Breath sounds equal bilaterally. No accessory muscle use. GASTROINTESTINAL: Abdomen soft, non-tender, nondistended. MUSCULOSKELETAL: No cyanosis, or edema. BACK: Nontender without obvious deformity. No CVA tenderness. A/P Problem List: (1) Acute respiratory failure with hypercapnia ICD Code: J96.02 - Acute respiratory failure with hypercapnia (2) UTI (urinary tract infection) ICD Code: N39.0 - Urinary tract infection, site not specified Status: Acute Assessment and Plan This is a 86-year-old gentleman with past medical history of diabetes who presented from [facility] secondary to fevers and fatigue. He was diagnosed with sepsis, UTI. He was started on Vancomycin and Zosyn. On 12/27/2016 , patient developed CO2 narcosis. After discussing with patient's daughter, DNR was rescinded and patient was intubated. - Acute respiratory failure hypercapnic - Sepsis likely due to UTI - Complicated Urinary tract infection with Proteus Mirabilis. - Patient received abx. Currently no fever, chills. - Currently on nasal cannula O2. - Hypertension - Hyperlipidemia - Continue Amlodipine 10mg Qday. - Continue Lipitor 10mg QHS. - GERD - Famotidine 20mg QHS. Discussed at length with patient's daughter who appears to be very reasonable. She would like to discuss with palliative care. Code status: Intubation only in the event of cardiopulmonary arrest. Problem Qualifiers (1) UTI (urinary tract infection): Qualified Codes: N30.00 - Acute cystitis without hematuria Bee Kim DO Dec 31, 2016 11:46
[2016-12-31] MEDS: FAMOTIDINE 20 MG TAB PO SCH (21:10)
[2016-12-31] MEDS: ATORVASTATIN 10 MG TAB PO SCH (21:10)
[2016-12-31] MEDS: ACETAMINOPHEN 325 MG TAB PO PRN (21:16)
[2017-01-01] VITALS (29 sets, daily range): BP systolic 105–143; BP diastolic 51–75; PULSE 20–84; RESP 16–20; TEMP 97.5–98.5; O2SAT 96–100
[2017-01-01] MEDS: NS + KCL 20 MEQ INJ 1,000 ML IV SCH ×2 (00:37→07:13)
[2017-01-01] MEDS: METOCLOPRAMIDE HCL 10 MG/2 ML VIAL IV PUSH SCH ×3 (05:39→22:17)
[2017-01-01] MEDS: CHLORHEXIDINE 0.12% (ORAL KIT) 15 ML CUP MT SCH ×2 (07:13→20:00)
[2017-01-01] MEDS: ESCITALOPRAM OXALATE 10 MG TAB PO SCH (08:26)
[2017-01-01] MEDS: TAMSULOSIN HCL 0.4 MG CAP PO SCH ×2 (08:26→22:17)
[2017-01-01] MEDS: ACETAMINOPHEN 325 MG TAB PO PRN (08:27)
[2017-01-01] MEDS: METOPROLOL TARTRATE 25 MG TAB PO SCH ×2 (08:28→22:17)
[2017-01-01] MEDS: FERROUS SULFATE 325 MG (65 MG ELEMENTAL IRON) TAB PO SCH ×2 (08:28→17:08)
[2017-01-01] MEDS: DOCUSATE SODIUM 50 MG/SENNA 8.6 MG TAB PO SCH ×2 (08:29→22:17)
[2017-01-01] MEDS: DORZOLAMIDE/TIMOLOL OPTH SOLN 10 ML BTL RIGHT EYE SCH ×2 (08:31→22:18)
--- NOTE | 2017-01-01 08:47 | HHI.PR ---
Subjective Remarks Follow up for respiratory failure, UTI. Patient seen and examined. RN at bedside. Patient resting in bed comfortably on 2 L NC. In no apparent distress. Denies any new acute complaints overnight. Does complain of pain due to groin rash. Objective Vitals Vital Signs Date Time Temp Pulse Resp B/P (MAP) Pulse Ox O2 Delivery O2 Flow Rate FiO2 01/01/17 07:39 Nasal Cannula 2.00 01/01/17 07:38 Nasal Cannula 2.00 01/01/17 06:00 78 01/01/17 05:00 76 01/01/17 04:16 98.5 83 18 131/68 (89) 97 01/01/17 04:00 82 01/01/17 03:00 77 01/01/17 02:00 74 01/01/17 01:00 70 01/01/17 00:41 66 16 128/55 (79) 98 01/01/17 00:00 66 12/31/16 23:00 67 12/31/16 22:16 98 Nasal Cannula 2.00 12/31/16 22:00 72 12/31/16 21:00 86 12/31/16 20:00 74 12/31/16 20:00 98.1 81 18 138/67 (90) 98 12/31/16 19:00 80 12/31/16 16:00 97.7 76 15 138/64 (88) 98 12/31/16 16:00 79 12/31/16 12:00 80 12/31/16 12:00 98.1 69 16 138/62 (87) 100 12/31/16 09:59 98 Nasal Cannula 3.00 I/O 12/31/16 12/31/16 12/31/16 01/01/17 01/01/17 01/01/17 07:00 15:00 23:00 07:00 15:00 23:00 Intake Total 1100 ml 1000 ml 100 ml 1100 ml Output Total 1500 ml 1000 ml 800 ml Balance -400 ml 1000 ml -900 ml 300 ml Intake Oral 100 ml 100 ml 100 ml IV Total 1000 ml 1000 ml 1000 ml Output Urine Total 1500 ml 1000 ml 800 ml # Bowel Movements 0 3 1 Result Diagram: 12/29/16 0424 12/31/16 0619 Imaging Last Impressions Abdomen/Pelvis CT 12/29/16 0000 Signed Impressions: Service Date/Time: December 12:15 - CONCLUSION: 1. There is a 7.8 x 5.4 cm fluid collection in the retroperitoneum on the right this arises from the proximal right ureter. It measures only 12 Hounsfield units. This may be the sequelae of an old ureteral injury. Retrograde evaluation of the ureter would be of benefit for further assessment. 2. No findings to indicate bowel obstruction identified. No free air or free fluid is present. 3. Small bibasilar effusions and consolidative changes within the lung bases. 4. 2.8 x 2.0 cm cyst within the liver. 5. Heterogeneous enhancement of the liver suggesting underlying hepatocellular disease. Jarred Cam MD Chest X-Ray 12/28/16 0400 Signed Impressions: Service Date/Time: Wednesday, December 28, 2016 05:36 - CONCLUSION: 1. Endotracheal tube and nasogastric tube in good position. Basilar airspace disease similar to December 27. Kb Hendrix MD Head CT 12/28/16 0000 Signed Impressions: Service Date/Time: Wednesday, December 28, 2016 01:01 - CONCLUSION: 1. No acute findings. Chronic white matter ischemic changes. Mucosal thickening ethmoid air cells. Kb Hendrix MD Renal Ultrasound 12/26/16 0000 Signed Impressions: Service Date/Time: Monday, December 26, 2016 14:22 - CONCLUSION: Negative hydronephrosis. Silvio Cam MD FACR Objective Remarks GENERAL: Alert, NAD. SKIN: Warm and dry. Right upper extremity swelling due to IV infiltration. HEAD: Normocephalic. EYES: No scleral icterus. No injection or drainage. NECK: Supple, trachea midline. No JVD or lymphadenopathy. CARDIOVASCULAR: Regular rate and rhythm. 2/6 systolic murmur RESPIRATORY: Breath sounds equal bilaterally. No accessory muscle use. GASTROINTESTINAL: Abdomen soft, non-tender, nondistended. Active BS x 4 q. MUSCULOSKELETAL: No cyanosis. Bilateral lower extremities with 1+ pitting edema. BACK: Nontender without obvious deformity. No CVA tenderness. A/P Problem List: (1) Acute respiratory failure with hypercapnia ICD Code: J96.02 - Acute respiratory failure with hypercapnia (2) UTI (urinary tract infection) ICD Code: N39.0 - Urinary tract infection, site not specified Status: Acute Assessment and Plan This is a 86-year-old gentleman with past medical history of diabetes who presented from [facility] secondary to fevers and fatigue. He was diagnosed with sepsis, UTI. He was started on Vancomycin and Zosyn. On 12/27/2016 , patient developed CO2 narcosis. After discussing with patient's daughter, DNR was rescinded and patient was intubated. Discussed at length with patient's daughter who appears to be very reasonable. She would like to discuss with palliative care. - Acute respiratory failure hypercapnic - Sepsis likely due to UTI - Complicated Urinary tract infection with Proteus Mirabilis. - Patient received abx. Currently no fever, chills. - Currently on nasal cannula O2 2 L. - Hypertension - Hyperlipidemia - Continue Amlodipine 10mg Qday. - Continue Lipitor 10mg QHS. - GERD - Famotidine 20mg QHS. - Dysphagia: Will order ST evaluation for swallow ability. Rule out any signs of aspiration. Will start PO diet if no signs of aspiration. For now will place on D5NS at 75 ml/hr. - Deconditioning: Order for PT evaluation. Stats post intubation and multiple days of immobility. Evaluate and treat, appreciate recommendations. - Hypokalemia: Status post replacement. Will recheck BMP today. Follow. Code status: Intubation only in the event of cardiopulmonary arrest. Problem Qualifiers (1) UTI (urinary tract infection): Maria Ines Barnes Jan 01, 2017 08:47
[2017-01-01] MEDS: SODIUM CHLORIDE 0.9% FLUSH 10 ML FLUSH IV FLUSH SCH ×2 (09:40→21:00)
[2017-01-01] MEDS: DEXT 5%-NACL 0.9% 1000 ML INJ 1,000 ML IV SCH ×2 (09:43→22:28)
[2017-01-01 14:33] LABS: BICARBONATE 25.8 MEQ/L (21.0-32.0); POTASSIUM 4.4 MEQ/L (3.5-5.1)
[2017-01-01] MEDS: FAMOTIDINE 20 MG TAB PO SCH (22:17)
[2017-01-01] MEDS: ATORVASTATIN 10 MG TAB PO SCH (22:17)
[2017-01-02] VITALS (24 sets, daily range): BP systolic 129–157; BP diastolic 58–80; PULSE 67–94; RESP 18–22; TEMP 97.1–98.1; O2SAT 96–99
[2017-01-02] MEDS: METOCLOPRAMIDE HCL 10 MG/2 ML VIAL IV PUSH SCH ×3 (06:04→22:01)
[2017-01-02] MEDS: CHLORHEXIDINE 0.12% (ORAL KIT) 15 ML CUP MT SCH ×2 (08:00→20:00)
[2017-01-02] MEDS: TAMSULOSIN HCL 0.4 MG CAP PO SCH ×2 (09:00→22:01)
[2017-01-02] MEDS: SODIUM CHLORIDE 0.9% FLUSH 10 ML FLUSH IV FLUSH SCH ×2 (09:00→22:02)
[2017-01-02] MEDS: ESCITALOPRAM OXALATE 10 MG TAB PO SCH (09:00)
[2017-01-02] MEDS: FERROUS SULFATE 325 MG (65 MG ELEMENTAL IRON) TAB PO SCH ×2 (09:00→17:19)
[2017-01-02] MEDS: DOCUSATE SODIUM 50 MG/SENNA 8.6 MG TAB PO SCH ×2 (09:00→22:01)
[2017-01-02] MEDS: DORZOLAMIDE/TIMOLOL OPTH SOLN 10 ML BTL RIGHT EYE SCH ×2 (09:38→22:01)
[2017-01-02] MEDS: METOPROLOL TARTRATE 25 MG TAB PO SCH ×2 (09:39→22:01)
--- NOTE | 2017-01-02 10:01 | HHI.PR ---
Subjective Remarks Follow up for respiratory failure, UTI. Patient seen and examined. RN, and daughter at bedside. Patient awake and alert, follows commands. Appears very weak. On 2 L NC. Denies any new acute complaints overnight. Failed swallow evaluation with ST yesterday. Per bedside RN patient tolerated swallowing pills overnight, no aspiration noted. Will continue to monitor. Denies any recent fever, chills, cough, nausea, vomiting, diarrhea. Objective Vitals Vital Signs Date Time Temp Pulse Resp B/P (MAP) Pulse Ox O2 Delivery O2 Flow Rate FiO2 01/02/17 06:00 76 01/02/17 05:13 75 18 145/75 (98) 96 01/02/17 05:00 74 01/02/17 04:00 72 01/02/17 03:00 70 01/02/17 02:00 74 01/02/17 01:00 68 01/02/17 00:00 68 01/01/17 23:47 97.6 68 16 131/67 (88) 100 01/01/17 23:00 73 01/01/17 22:00 80 01/01/17 21:00 80 01/01/17 20:00 80 01/01/17 19:00 96 Nasal Cannula 2.00 01/01/17 19:00 81 01/01/17 19:00 97.5 78 18 143/71 (95) 96 01/01/17 18:15 80 01/01/17 17:00 78 01/01/17 16:26 76 01/01/17 16:19 98.3 20 18 105/51 (69) 99 01/01/17 15:00 72 01/01/17 14:00 72 01/01/17 13:00 74 01/01/17 12:01 69 01/01/17 12:01 97.9 68 19 119/57 (77) 98 01/01/17 11:00 68 I/O 01/01/17 01/01/17 01/01/17 01/02/17 01/02/17 01/02/17 07:00 15:00 23:00 07:00 15:00 23:00 Intake Total 1100 ml 10 ml 1552 ml 100 ml Output Total 800 ml 1050 ml 1100 ml Balance 300 ml 10 ml 502 ml -1000 ml Intake Oral 100 ml 100 ml IV Total 1000 ml 10 ml 1552 ml Output Urine Total 800 ml 1050 ml 1100 ml # Bowel Movements 1 0 Result Diagram: 12/29/16 0424 01/02/17 0604 Imaging Last Impressions Abdomen/Pelvis CT 12/29/16 0000 Signed Impressions: Service Date/Time: December 12:15 - CONCLUSION: 1. There is a 7.8 x 5.4 cm fluid collection in the retroperitoneum on the right this arises from the proximal right ureter. It measures only 12 Hounsfield units. This may be the sequelae of an old ureteral injury. Retrograde evaluation of the ureter would be of benefit for further assessment. 2. No findings to indicate bowel obstruction identified. No free air or free fluid is present. 3. Small bibasilar effusions and consolidative changes within the lung bases. 4. 2.8 x 2.0 cm cyst within the liver. 5. Heterogeneous enhancement of the liver suggesting underlying hepatocellular disease. Jarred Cam MD Chest X-Ray 12/28/16 0400 Signed Impressions: Service Date/Time: Wednesday, December 28, 2016 05:36 - CONCLUSION: 1. Endotracheal tube and nasogastric tube in good position. Basilar airspace disease similar to December 27. Kb Hendrix MD Head CT 12/28/16 0000 Signed Impressions: Service Date/Time: Wednesday, December 28, 2016 01:01 - CONCLUSION: 1. No acute findings. Chronic white matter ischemic changes. Mucosal thickening ethmoid air cells. Kb Hendrix MD Renal Ultrasound 12/26/16 0000 Signed Impressions: Service Date/Time: Monday, December 26, 2016 14:22 - CONCLUSION: Negative hydronephrosis. Silvio Cam MD FACR Objective Remarks GENERAL: Alert, NAD. Lying in bed comfortably on 2 L NC. SKIN: Warm and dry. Right upper extremity swelling due to IV infiltration. HEAD: Normocephalic. EYES: No scleral icterus. No injection or drainage. NECK: Supple, trachea midline. No JVD or lymphadenopathy. CARDIOVASCULAR: Regular rate and rhythm. 2/6 systolic murmur RESPIRATORY: Breath sounds equal bilaterally. No accessory muscle use. GASTROINTESTINAL: Abdomen soft, non-tender, nondistended. Active BS x 4 q. MUSCULOSKELETAL: No cyanosis. Bilateral lower extremities with 1+ pitting edema. BACK: Nontender without obvious deformity. No CVA tenderness. A/P Problem List: (1) Acute respiratory failure with hypercapnia ICD Code: J96.02 - Acute respiratory failure with hypercapnia (2) UTI (urinary tract infection) ICD Code: N39.0 - Urinary tract infection, site not specified Status: Acute Assessment and Plan This is a 86-year-old gentleman with past medical history of diabetes who [place] [facility] [place] secondary to fevers and fatigue. He was diagnosed with sepsis, UTI. He was started on Vancomycin and Zosyn. On 12/27/2016 , patient developed CO2 narcosis. After discussing with patient's daughter, DNR was rescinded and patient was intubated. Discussed at length with patient's daughter who appears to be very reasonable. She would like to discuss with palliative care. Acute respiratory failure hypercapnic Sepsis likely due to UTI Complicated Urinary tract infection with Proteus Mirabilis. - Patient received abx. Currently no fever, chills. - Currently on nasal cannula O2 2 L. Hypertension Hyperlipidemia - Continue Amlodipine 10mg Qday. - Continue Lipitor 10mg QHS. GERD - Famotidine 20mg QHS. Dysphagia: ST saw patient yesterday, recommending NPO for now. Will reassess patient today, follow recommendations. Rule out any signs of aspiration. Will start PO diet if no signs of aspiration. For now continue D5NS at 75 ml/hr. Deconditioning: PT following. Stats post intubation and multiple days of immobility. Evaluate and treat, appreciate continued recommendations. Hypokalemia: Status post replacement. K 4.4, BMP reviewed. Code status: Intubation only in the event of cardiopulmonary arrest. Problem Qualifiers (1) UTI (urinary tract infection): Maria Ines Barnes Jan 02, 2017 10:01
--- NOTE | 2017-01-02 10:03 | PD.CONS ---
Consult Service Palliative Care Consult Requested By Dr. Kim Primary Care Physician Souleymane Mckinley MD Reason for Consultation a. To assist with evaluation and management of symptoms including: Fatigue, dyspnea, dysphagia b. To assist medical decision maker(s) with: better understanding of current medical conditions; weighing benefits/burdens of medical treatment options; making medical treatment decisions. HPI History of Present Illness This is an 86-year-old male brought to [facility] from the [facility] 12/25/16 with tachycardia and fever. His presenting temperature was 102, pulse 108 and sepsis protocol was initiated. Patient was awake and alert on admission without complaint. A signed DNR was made available to [place] on admission. Patient at baseline is bedridden and incontinent. His past medical history is significant for diabetes mellitus, hypertension, hyperlipidemia, depression and BPH. ED course: * Laboratory: Upon presentation to ED, labs were WBC 22.0, hemoglobin 13.2, hematocrit 39.1, platelets 147, sodium 139, potassium 4.2, BUN 16, creatinine 1.04, lactic acid 1.0, troponin 0.03, B natriuretic peptide 141, TSH 0.610. Urinalysis showed a clear yellow specimen with a pH of 5.5, specific gravity 1.017, protein 30, trace ketones, small occult blood, negative nitrite, moderate leukocyte esterase, culture pending. On 12/27/16 ABG showed pH 7.15, PCO2 69, PaO2 132, HCO3 23, base excess -4.6, oxygen saturation 96% on 15 L nonrebreather mask. * Radiology: 12/25/16 Presenting chest x-ray shows no acute cardiopulmonary abnormality. Renal ultrasound was negative for hydronephrosis. 12/27/16 repeat chest x-ray showed new consolidative opacity in the right lower lobe most characteristic of pneumonia, recheck status post intubation shows stable bibasilar and perihilar infiltrates consistent with pulmonary edema versus pneumonia. 12/28/[address] of the head with chronic white matter ischemic changes but no acute findings. 12/29/16 CT of the abdomen and pelvis shows a 7.8 x 5.4 cm fluid collection in the retroperitoneum on the right arising from the proximal right ureter. Measuring 12 Hounsfield units, possibly sequelae of old ureteral injury. No findings of bowel obstruction, small bibasilar effusions and consolidative changes in the lung bases with a 2.8 x 2.0 cm cyst within the liver and suggested underlying hepatocellular disease. Consultation: * Urology: Patient was examined by Dr. Gigi Ayala after a post void residual of greater than 700 mL was found upon catheter placement. Tamsulosin was increased to twice daily. Straight catheterization every 6 hours was initiated with discontinuation of both oxybutynin and Detrol LA. Renal ultrasound to rule out urolithiasis was ordered. On 12/27/16, patient developed respiratory acidosis with CO2 narcosis, respiratory failure and obtundation. At that time his DNR was revoked by a female member of the family and he was transferred to ICU for intubation and mechanical ventilation. Chest x-ray at that time showed a new large right lower lobe pneumonia. During his course in ICU he developed abdominal distention and CT of the abdomen was obtained showing an upper GI bleed. CODE STATUS was again discussed with family and the patient is now on alternative code with intubation only, no CPR. Speech therapy evaluation was ordered to evaluate for likely aspiration finding moderate to severe oropharyngeal dysphagia marked by impaired oral stage function for bolus manipulation and transit with delayed/absent swallow initiation and decreased coordination for fellow pharyngeal closure and swallow resulting in increased risk for aspiration. Speech therapy recommending modified barium swallow to assess severity of dysphagia, with a recommendation to continue nothing by mouth status until that study is completed today. Evaluation revealed an elderly obese male lying in bed in no acute distress. He aroused to voice and spoke with his daughter in Martiniquais. His daughter states that his memory is poor but he is generally oriented and able to participate in his care. She and her brother, Jez, are the joint proxy decision makers. . Function/Cognitive Trajectory Patient was independent although fairly sedentary up until 2-1/2 years ago when he fell and broke his right femur after missing a step while walking. He underwent surgical repair for that in [place] and underwent rehabilitation at [facility] in [place] for several weeks. He never regained the ability to ambulate independently after that fracture. He was then transferred to the [facility] for continued rehabilitation where he lived with his , who has dementia. After completing a course of rehabilitation at the [facility] he was placed in long-term care at that facility, again with his . He has now declined to a bed to wheelchair status with minimal ambulation through restorative therapy. Physical therapy evaluation 01/01/17 noted patient to be a max assist from supine to sit and sit to stand with a maximum of 2 assists per transfer, with intermittent loss of balance to the left side while seated requiring external support and bilateral upper extremity support to maintain standing with a walker. He required significant cueing to maintain standing position. . Review of Systems ROS Limitations: Clinical Condition Constitutional: COMPLAINS OF: Fatigue Endocrine: DENIES: Heat/cold intolerance, Polydipsia, Polyuria, Polyphagia Eyes: DENIES: Blurred vision, Diplopia, Eye inflammation, Eye pain, Vision loss , Photosensitivity, Double Vision, Blind spots Ears, nose, mouth, throat: COMPLAINS OF: Hoarseness Respiratory: COMPLAINS OF: Cough Cardiovascular: COMPLAINS OF: Dyspnea on Exertion, Lower Extremity Edema Gastrointestinal: COMPLAINS OF: Difficulty Swallowing Genitourinary: COMPLAINS OF: Urinary incontinence (with retention) Musculoskeletal: COMPLAINS OF: Decreased range of motion Integumentary: DENIES: Abnormal pigmentation, Nail changes, Pruritus, Rash, Nodules, Tumors, Excessive dryness, Non-healing sores Hematologic/Lymphatics: DENIES: Bruising, Lymphadenopathy, Prolonged bleed w/ proced, History of transfusions Immunologic/Allergic: DENIES: Eczema, Urticaria Neurologic: COMPLAINS OF: Poor Balance Psychiatric: DENIES: Anxiety, Confusion, Mood changes, Depression, Hallucinations, Agitation, Suicidal Ideation, Homicidal Ideation, Delusions, Anhedonia Past Family Social History Coded Allergies: No Known Allergies (Unverified , 12/25/16) Past Medical History Type 2 diabetes Depression Hypertension Hyperlipidemia BPH History of left femur fracture . Past Surgical History Left femur fracture repair . Reported Medications Reported Meds & Active Scripts Active Reported Metoprolol Tartrate 25 Mg Tab 25 Mg PO BID Metformin (Metformin HCl) 500 Mg Tab 500 Mg PO BIDPC With meals Glimepiride 2 Mg Tab 2 Mg PO BIDAC Ferrous Sulfate 325 Mg (65 Mg Iron) Tablet 325 Mg PO BIDPC Dorzolamide-Timolol Opth Drops 22.3-6.8 Mg/Ml Soln 1 Drop RIGHT EYE BID Tamsulosin (Tamsulosin HCl) 0.4 Mg Cap 0.4 Mg PO DAILY Oxybutynin ER 24 HR (Oxybutynin Chloride) 10 Mg Tab 10 Mg PO DAILY Lexapro (Escitalopram Oxalate) 10 Mg Tab 10 Mg PO DAILY Famotidine 20 Mg Tab 20 Mg PO HS Durezol Opth (Difluprednate Opth) 0.05% Emul Atorvastatin (Atorvastatin Calcium) 10 Mg Tab 10 Mg PO HS Amlodipine (Amlodipine Besylate) 10 Mg Tab 10 Mg PO DAILY . Current Medications Medications (Trade) Dose Ordered Sig/Patsy Route Start Time Stop Time Status Last Admin (NS Flush) 2 ml UNSCH PRN IV FLUSH 12/25/16 10:00 (NS Flush) 2 ml BID IV FLUSH 12/25/16 21:00 01/01/17 09:40 (Zofran Inj) 4 mg Q6H PRN IVP 12/25/16 10:00 (Narcan Inj) 0.4 mg UNSCH PRN IV 12/25/16 10:00 (Nhung-Colace) 1 tab BID PO 12/25/16 21:00 01/01/17 22:17 (Milk Of Magnesia Liq) 30 ml Q12H PRN PO 12/25/16 10:00 (Senokot) 17.2 mg Q12H PRN PO 12/25/16 10:00 (Dulcolax Supp) 10 mg DAILY PRN RECTAL 12/25/16 10:00 (Lactulose Liq) 30 ml DAILY PRN PO 12/25/16 10:00 (Tylenol) 650 mg Q4H PRN PO 12/25/16 10:00 01/01/17 08:27 (Lipitor) 10 mg HS PO 12/25/16 21:00 01/01/17 22:17 (Cosopt 2-0.5% Opth Soln) 1 drop BID RIGHT EYE 12/25/16 21:00 01/01/17 22:18 (Lexapro) 10 mg DAILY PO 12/26/16 09:00 01/01/17 08:26 (Pepcid) 20 mg HS PO 12/25/16 21:00 01/01/17 22:17 (Ferrous Sulfate) 325 mg BIDPC PO 12/25/16 18:00 01/01/17 17:08 (Norvasc) 10 mg DAILY PO 12/26/16 09:45 01/01/17 08:26 (Lopressor) 25 mg BID PO 12/26/16 09:45 01/01/17 22:17 (Flomax) 0.4 mg Q12HR PO 12/26/16 21:00 01/01/17 22:17 (Peridex 0.12% Liq) 15 ml BID@08,20 MT 12/27/16 20:00 12/30/16 20:36 (Reglan Inj) 10 mg Q8HR IV PUSH 12/29/16 17:15 01/02/17 06:04 Dextrose/Sodium Chloride 1,000 ml @ 75 mls/hr [id number] IV 01/01/17 08:45 01/01/17 22:28 . Family History Patient's mother in her 60s of unknown causes. She lived in [place]. Father's demise was unknown. . Substance Use Tobacco: Remote history of smoking, quit 20 years ago, states he was never a heavy smoker. Alcohol: History of social alcohol use none currently. Prescription med abuse: No prescription drug abuse. Illicits: No illicit drug use. . Psychosocial History He was born in [place] and moved to the around age 33 is settling in [place]. He completed his education through [employer] in [place]. 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 After he broke his leg 2-1/2 years ago he moved to the [facility] closer to where his son is to settle into a residential facility with his who had since developed dementia. . Spiritual/Cultural Factors He is a practicing Yazdanism and would like sacraments of the sick from the automobile dealer. . Living Will: Never completed Health Care Surrogate: Never completed Durable Power of Vinyl Hanger: Never completed Documented care wishes: At this time the family is leaning towards comfort care only. The daughter states that her understanding of his condition prior to lifting the DNR and authorizing intubation was that the patient was actively choking and in discomfort gasping for air. She states that as long as her father is comfortable she is more inclined to decide on comfort care. She is planning to hold a discussion with her father and her brother on the information reviewed at today's meeting and developed their comfort level with the DNR status. . Family/friends goals: Comfort level as above per daughter. . Physical Exam Vital Signs Date Time Temp Pulse Resp B/P (MAP) Pulse Ox O2 Delivery O2 Flow Rate FiO2 01/02/17 06:00 76 01/02/17 05:13 75 18 145/75 (98) 96 01/02/17 05:00 74 01/02/17 04:00 72 01/02/17 03:00 70 01/02/17 02:00 74 01/02/17 01:00 68 01/02/17 00:00 68 01/01/17 23:47 97.6 68 16 131/67 (88) 100 01/01/17 23:00 73 01/01/17 22:00 80 01/01/17 21:00 80 01/01/17 20:00 80 01/01/17 19:00 96 Nasal Cannula 2.00 01/01/17 19:00 81 01/01/17 19:00 97.5 78 18 143/71 (95) 96 01/01/17 18:15 80 01/01/17 17:00 78 01/01/17 16:26 76 01/01/17 16:19 98.3 20 18 105/51 (69) 99 01/01/17 15:00 72 01/01/17 14:00 72 01/01/17 13:00 74 01/01/17 12:01 69 01/01/17 12:01 97.9 68 19 119/57 (77) 98 01/01/17 11:00 68 01/01/17 10:00 68 01/01/17 09:34 20 . Exam CONSTITUTIONAL/GENERAL: This is a mildly obese patient, in no apparent distress. TUBES/LINES/DRAINS: LFA PIV SKIN: No jaundice, rashes, or lesions. Ecchymoses on upper extremities. No wounds seen anteriorly. Skin temperature appropriate. Not diaphoretic. HEAD: Atraumatic. Normocephalic. EYES: Pupils equal and round and reactive. Extraocular motions intact. No scleral icterus. No injection or drainage. Fundi not examined. ENT: Hearing grossly normal. Nose without bleeding or purulent drainage. Throat without visible erythema, exudates, masses, or lesions. NECK: Trachea midline. Supple, nontender. No palpable thyroid enlargement or nodularity. CARDIOVASCULAR: Regular rate and rhythm with 3/6 systolic ejection murmur, no rub nor gallop. RESPIRATORY/CHEST: Diminished respirations with rhonchorous cough and scattered rhonchi throughout lung son. GASTROINTESTINAL: Abdomen obese, soft, non-tender, nondistended. No guarding. Bowel sounds present. GENITOURINARY: Without palpable bladder distension. Honeycutt catheter in place. MUSCULOSKELETAL: Extremities without clubbing or cyanosis, 2-3+ edema. No joint tenderness or effusion noted. No calf tenderness. No mottling or clubbing. NEUROLOGICAL: Arouses to voice, doses frequently. Generalized weakness Follows commands. Speaks to his daughter in Martiniquais, answers as she translates appear appropriate. Moves all extremities. PSYCHIATRIC: No obvious anxiety/depression. no apparent hallucinations or other psychotic thought process. . Diagnostic Tests Laboratory Laboratory Tests Test 12/31/16 06:19 01/01/17 13:50 01/02/17 06:04 Creatinine 0.71 MG/DL (0.60-1.30) 0.86 MG/DL (0.60-1.30) 0.75 MG/DL (0.60-1.30) Estimat Glomerular Filtration Rate 105 ML/MIN (>89) 84 ML/MIN (>89) 98 ML/MIN (>89) Blood Urea Nitrogen 12 MG/DL (7-18) Random Glucose 142 MG/DL (74-106) Calcium Level 9.1 MG/DL (8.5-10.1) Sodium Level 145 MEQ/L (136-145) Potassium Level 4.4 MEQ/L (3.5-5.1) Chloride Level 110 MEQ/L (98-107) Carbon Dioxide Level 25.8 MEQ/L (21.0-32.0) Anion Gap 9 MEQ/L (5-15) . Result Diagram: 12/29/16 0424 01/02/17 0604 Microbiology Microbiology Date/Time Source Procedure Growth Status 12/25/16 07:00 Blood Peripheral Aerobic Blood Culture - Final NO GROWTH IN 5 DAYS Complete 12/25/16 07:00 Blood Peripheral Anaerobic Blood Culture - Final NO GROWTH IN 5 DAYS Complete 12/27/16 18:53 Sputum Endotracheal Gram Stain - Final Complete 12/27/16 18:53 Sputum Endotracheal Sputum Culture - Final MODERATE GROWTH NORMAL RESPIRATORY MANJU Complete 12/25/16 08:04 Urine Random Urine Urine Culture - Final Proteus Mirabilis Complete Imaging Last Impressions Abdomen/Pelvis CT 12/29/16 0000 Signed Impressions: Service Date/Time: December 12:15 - CONCLUSION: 1. There is a 7.8 x 5.4 cm fluid collection in the retroperitoneum on the right this arises from the proximal right ureter. It measures only 12 Hounsfield units. This may be the sequelae of an old ureteral injury. Retrograde evaluation of the ureter would be of benefit for further assessment. 2. No findings to indicate bowel obstruction identified. No free air or free fluid is present. 3. Small bibasilar effusions and consolidative changes within the lung bases. 4. 2.8 x 2.0 cm cyst within the liver. 5. Heterogeneous enhancement of the liver suggesting underlying hepatocellular disease. Jarred Cam MD Chest X-Ray 12/28/16 0400 Signed Impressions: Service Date/Time: Wednesday, December 28, 2016 05:36 - CONCLUSION: 1. Endotracheal tube and nasogastric tube in good position. Basilar airspace disease similar to December 27. Kb Hendrix MD Head CT 12/28/16 0000 Signed Impressions: Service Date/Time: Wednesday, December 28, 2016 01:01 - CONCLUSION: 1. No acute findings. Chronic white matter ischemic changes. Mucosal thickening ethmoid air cells. Kb Hendrix MD Renal Ultrasound 12/26/16 0000 Signed Impressions: Service Date/Time: Monday, December 26, 2016 14:22 - CONCLUSION: Negative hydronephrosis. Silvio Cam MD FACR Procedures 12/27/16-orotracheal intubation. Patient/Family Conference Present at Family Conference: Present at today's conference was the daughter, Farida Espinoza, the patient and his . We discussed at length his current medical condition, dysphagia, aspiration pneumonia and his progressive decline since his femur fracture 2-1/2 years ago. The daughter states that he had become more sedentary over 7 years ago when his first developed colon cancer and he has become progressively less active since that time. She states she does not wish to have him maintained long-term on machines and is not certain that she would want him reintubated again as long as he was not in distress. We discussed comfort measures progressing to the possibility of hospice care area to support the father's quality of life during his continued decline. She wishes to hold this discussion with her brother and father and clarify their goals. Plan is to talk again in the morning prior to her departure back to [place] for further update. . Family Conference Time (mins): 30 (minutes) Family Conference Location: Bedside Issues Discussed: In addition to the above discussion following were also reviewed and explained: * Palliative care role, purpose, approach * Additional medical, psychosocial, and spiritual history * Patients general health, functional status, and cognitive changes in the months leading up to the current hospitalization * Patient/family understanding of the current medical problems * Patient/family understanding of prognosis * Patients goals of care as best understood from advance directives and/or conversations and/or values * Current medical treatment options and benefits/burdens of those options * Likely scenarios comparing ongoing aggressive care with a transition to comfort measures only * Questions answered to the best of my ability * Palliative care contact information provided .. Assessment and Plan Disease Oriented Problem List: (1) Confusion (2) Debility (3) Dysphagia (4) Hyperlipemia (5) Hypertension (6) Sepsis (7) UTI (urinary tract infection) (8) Acute respiratory failure with hypercapnia Symptom Scale: (1) Dyspnea and respiratory abnormalities 0-10 Scale: Unable to quantify (2) Fatigue 0-10 Scale: Unable to quantify (3) Dysphagia 0-10 Scale: Unable to quantify Pertinent Non-Medical Issues Psychosocial:He was born in [place] and moved to the around age 33 is settling in [place]. He completed his education through [employer] in [place]. 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 After he broke his leg 2-1/2 years ago he moved to the [facility] area closer to where his son is to settle into a residential facility with his who had since developed dementia. Spiritual:He is a practicing Yazdanism and would like sacraments of the sick from the automobile dealer. Legal:None. Ethical issues impacting care: None. . Important Contacts Farida Espinoza Jez Palmer Jr . Prognosis His prognosis is poor. He is 86 years old with multiple comorbidities to include diabetes, hypertension, hyperlipidemia, BPH, and newly diagnosed dysphasia and urinary retention. He is no longer able to ambulate and cannot re -positioning himself in bed. He is at elevated risk for recurrent aspiration, respiratory failure and failure to thrive. . Code Status: Alternative Code (Intubation only) Plan PLAN: Legal decision maker: There are 2 children, daughter Farida, and son Jez, who shared decision making. Patient has some capacity but defers to his children. Goals: Family wishes patient to be comfortable and allowed intubation only because their understanding was that the patient was actively choking and gasping for air. Further discussion will be held with both children and the father to further clarify their goals. CODE STATUS: Alternate code, intubation only at this time. SYMPTOMS: * Fatigue - has become more sedentary and somnolent per the daughter, Farida. Patient primarily has bed to wheelchair existence and naps frequently throughout the day and sleeps well through the night. Daughter attributes the worsening of this to the initiation of his antidepressants. Could consider discontinuing antidepressants if, indeed, they are contributing to his lethargy. * Dyspnea - secondary to aspiration pneumonia. He is now extubated and stable on nasal cannula oxygen. He has occasional rhonchorous cough with weak effort. May benefit from scheduled guaifenesin. * Dysphasia - failed swallow evaluation and is currently NPO pending modified barium swallow. Discussed this with the daughter and she declines feeding tube. She understands the continued risk of aspiration and states that this is a artificial method of keeping her father alive which would not improve his quality of life and she would prefer comfort care. She wishes to find out the results of the barium swallow prior to making further plans. In summary this is an 86-year-old male who has been suffering consistent decline over the last 7 years. He has gone from independent ambulation to now a bed to wheelchair status and requires 2 person maximum assist to transfer from bed to wheelchair. He has now developed aspiration pneumonia and has failed his swallow evaluation. He required a recent intubation due to respiratory acidosis secondary to right lower lobe aspiration pneumonia. The family is reluctant to allow reintubation I would like to wait until the results of the modified barium swallow are available to make her final decision. Palliative care will continue to follow the patient during hospital course as condition evolves, to assist patient/decision-maker with understanding of their medical conditions, weighing benefits/burdens of treatment options, for clarification of goals of treatment. Additionally will assist with any symptoms of palliative concern. . Time Spent >50% Counseling/Coord of Care: Yes Thank you for the opportunity to participate in the care of Mr. Palmer. Attestation To help prompt me to consider important information that might be impacting today's encounter and assessment, information from prior notes written by myself or my colleagues may have been "brought forward" into today's note. My signature on this note, however, is an attestation that I personally performed the exam, history, and/or decision-making noted today, and, unless otherwise indicated, the interactions with patient, family, and staff as well as the review of records all occurred today. I also attest that the listed assessment and stated plan reflect my best clinical judgment today based on the combination of historical information, prior notes, and today's exam/ interactions. When time spent is documented, it refers only to time spent today by the signer, or if indicated, combined time spent today by collaborating physician/nurse practitioner. Beatriz Tong Jan 02, 2017 10:03 am
[2017-01-02] MEDS: DEXT 5%-NACL 0.9% 1000 ML INJ 1,000 ML IV SCH (11:25)
[2017-01-02] MEDS: ATORVASTATIN 10 MG TAB PO SCH (22:01)
[2017-01-02] MEDS: FAMOTIDINE 20 MG TAB PO SCH (22:01)
[2017-01-03] VITALS (20 sets, daily range): BP systolic 123–151; BP diastolic 56–68; PULSE 68–98; RESP 20–23; TEMP 98–99.1; O2SAT 95–100
[2017-01-03] MEDS: DEXT 5%-NACL 0.9% 1000 ML INJ 1,000 ML IV SCH (00:45)
[2017-01-03] MEDS: METOCLOPRAMIDE HCL 10 MG/2 ML VIAL IV PUSH SCH (05:51)
[2017-01-03] MEDS: CHLORHEXIDINE 0.12% (ORAL KIT) 15 ML CUP MT SCH ×2 (08:00→20:00)
--- NOTE | 2017-01-03 08:40 | HHI.PR ---
Subjective Remarks Follow up for respiratory failure, UTI. Patient wakes up on verbal commands. Appears to deny any acute concerns. He is currently on mechanical soft diet. Objective Vitals Vital Signs Date Time Temp Pulse Resp B/P (MAP) Pulse Ox O2 Delivery O2 Flow Rate FiO2 01/03/17 07:26 98.5 81 20 123/59 (80) 98 01/03/17 07:00 76 01/03/17 06:00 79 01/03/17 05:00 74 01/03/17 04:00 74 01/03/17 03:00 95 Nasal Cannula 2.00 01/03/17 03:00 98.0 73 22 151/66 (94) 95 01/03/17 03:00 72 01/03/17 02:00 76 01/03/17 01:00 68 01/03/17 00:00 72 01/02/17 23:00 69 01/02/17 23:00 97 Nasal Cannula 2.00 01/02/17 23:00 98.1 68 22 132/58 (82) 98 01/02/17 22:00 78 01/02/17 21:00 80 01/02/17 20:00 80 01/02/17 19:00 97 Nasal Cannula 2.00 01/02/17 19:00 79 01/02/17 19:00 98.0 77 22 157/74 (101) 98 01/02/17 18:00 80 01/02/17 17:36 87 01/02/17 16:03 78 01/02/17 15:38 97 Nasal Cannula 2.00 01/02/17 15:38 81 01/02/17 15:38 97.6 89 20 129/68 (88) 97 01/02/17 14:02 74 01/02/17 13:02 74 01/02/17 12:35 71 01/02/17 11:20 97.1 69 20 137/68 (91) 99 01/02/17 11:20 99 Nasal Cannula 2.00 01/02/17 11:20 67 01/02/17 10:00 78 01/02/17 09:00 80 I/O 01/02/17 01/02/17 01/02/17 01/03/17 01/03/17 01/03/17 07:00 15:00 23:00 07:00 15:00 23:00 Intake Total 100 ml 990 ml 2643 ml Output Total 1100 ml 900 ml 600 ml Balance -1000 ml 90 ml 2043 ml Intake Oral 100 ml 240 ml 240 ml IV Total 750 ml 2403 ml Output Urine Total 1100 ml 900 ml 600 ml # Bowel Movements 0 0 Result Diagram: 01/02/17 0604 Imaging Last Impressions Abdomen/Pelvis CT 12/29/16 0000 Signed Impressions: Service Date/Time: December 12:15 - CONCLUSION: 1. There is a 7.8 x 5.4 cm fluid collection in the retroperitoneum on the right this arises from the proximal right ureter. It measures only 12 Hounsfield units. This may be the sequelae of an old ureteral injury. Retrograde evaluation of the ureter would be of benefit for further assessment. 2. No findings to indicate bowel obstruction identified. No free air or free fluid is present. 3. Small bibasilar effusions and consolidative changes within the lung bases. 4. 2.8 x 2.0 cm cyst within the liver. 5. Heterogeneous enhancement of the liver suggesting underlying hepatocellular disease. Jarred Cam MD Chest X-Ray 12/28/16 0400 Signed Impressions: Service Date/Time: Wednesday, December 28, 2016 05:36 - CONCLUSION: 1. Endotracheal tube and nasogastric tube in good position. Basilar airspace disease similar to December 27. Kb Hendrix MD Head CT 12/28/16 0000 Signed Impressions: Service Date/Time: Wednesday, December 28, 2016 01:01 - CONCLUSION: 1. No acute findings. Chronic white matter ischemic changes. Mucosal thickening ethmoid air cells. Kb Hendrix MD Renal Ultrasound 12/26/16 0000 Signed Impressions: Service Date/Time: Monday, December 26, 2016 14:22 - CONCLUSION: Negative hydronephrosis. Silvio Cam MD FACR Objective Remarks GENERAL: Alert, NAD. SKIN: Warm and dry. HEAD: Normocephalic. EYES: No scleral icterus. No injection or drainage. NECK: Supple, trachea midline. No JVD or lymphadenopathy. CARDIOVASCULAR: Regular rate and rhythm without murmurs, gallops, or rubs. RESPIRATORY: Breath sounds equal bilaterally. No accessory muscle use. GASTROINTESTINAL: Abdomen soft, non-tender, nondistended. MUSCULOSKELETAL: No cyanosis, or edema. BACK: Nontender without obvious deformity. No CVA tenderness. Procedures Intubation 12/27/2016 A/P Problem List: (1) Acute respiratory failure with hypercapnia ICD Code: J96.02 - Acute respiratory failure with hypercapnia (2) UTI (urinary tract infection) ICD Code: N39.0 - Urinary tract infection, site not specified Status: Acute Assessment and Plan This is a 86-year-old gentleman with past medical history of diabetes who presented from care home [facility] secondary to fevers and fatigue. He was diagnosed with sepsis, UTI. He was started on Vancomycin and Zosyn. On 12/27/2016 , patient developed CO2 narcosis. After discussing with patient's daughter, DNR was rescinded and patient was intubated. Discussed at length with patient's daughter who appears to be very reasonable. She would like to discuss with palliative care. Acute respiratory failure hypercapnic Sepsis likely due to UTI Complicated Urinary tract infection with Proteus Mirabilis. - Patient received abx. Currently no fever, chills. - Currently on nasal cannula O2 2 L. Hypertension Hyperlipidemia - Continue Amlodipine 10mg Qday. - Continue Lipitor 10mg QHS. GERD - Famotidine 20mg QHS. Dysphagia - Patient is currently on mechanical soft diet per speech. Deconditioning: PT following. Stats post intubation and multiple days of immobility. Evaluate and treat, appreciate continued recommendations. Hypokalemia: Status post replacement. K 4.4 Code status: Intubation only in the event of cardiopulmonary arrest. Overall poor prognosis. Would be a good hospice candidate. Palliative care is following. Problem Qualifiers (1) UTI (urinary tract infection): Bee Kim DO Jan 03, 2017 8:40 am
[2017-01-03] MEDS: DOCUSATE SODIUM 50 MG/SENNA 8.6 MG TAB PO SCH ×2 (09:00→23:52)
[2017-01-03] MEDS: METOPROLOL TARTRATE 25 MG TAB PO SCH ×2 (09:00→23:53)
[2017-01-03] MEDS: FERROUS SULFATE 325 MG (65 MG ELEMENTAL IRON) TAB PO SCH ×2 (09:00→18:00)
[2017-01-03] MEDS: TAMSULOSIN HCL 0.4 MG CAP PO SCH ×2 (09:00→23:52)
[2017-01-03] MEDS: DORZOLAMIDE/TIMOLOL OPTH SOLN 10 ML BTL RIGHT EYE SCH (09:46)
[2017-01-03] MEDS: SODIUM CHLORIDE 0.9% FLUSH 10 ML FLUSH IV FLUSH SCH ×2 (09:52→23:52)
--- NOTE | 2017-01-03 10:44 | HHI.HCPN ---
Reason for visit a. To assist with evaluation and management of symptoms including: Fatigue, dyspnea, dysphagia b. To assist medical decision maker(s) with: better understanding of current medical conditions; weighing benefits/burdens of medical treatment options; making medical treatment decisions. Subjective/Interval History Patient is very lethargic today, difficult to arouse. Medications reviewed, Reglan was the only medication with the side effect of sedation found. Reglan previously started 12/29/[address] Garcia secondary to a large amount of gastric output while intubated and sedated. RN attempted to give patient morning medications but patient coughed with first sip of water. As blood pressure was normotensive, medications were held at this time due to the risk of aspiration secondary to the patient's lethargy. Per the daughter he had previously eaten breakfast (oatmeal, yogurt) with no difficulty. Speech therapy evaluation reviewed, patient cleared for soft diet, thin liquids. No new laboratory or imaging studies are available today. . Family/friend interactions Both daughter and son are at bedside today. Daughter is returning to [place] but will return next week. They are concerned about the patient's lethargy as he was far more awake and interactive yesterday. Today, he is too lethargic to swallow pills. Family would like as many medications as possible discontinued. Their primary concern is Lexapro, Reglan and stool softeners. The daughter states that Lexapro was initiated in the halfway as it was felt it would make him more active, however, it has had the opposite effect and patient has continued to become more and more sedentary. Both children state that her father has never had a depression problem and feel that the medication is doing no good, and may be contributing to his lethargy. The Reglan is a new medication started 12/29/16 while intubated in ICU, secondary to large amounts of gastric output. The daughter states the father has never had a constipation problem and while in the hospital on stool softeners, he has had very soft and sometimes loose stools with occasional large amounts of diarrhea. Given his difficulty swallowing and his propensity to aspirate, they feel that minimizing medications would be in the patient's best interest. . Advance Directives Living Will: Never completed Health Care Surrogate: Never completed Durable Power of Call Center Nurse: Never completed Advance Directive Specifics Documented care wishes: At this time the family is leaning towards comfort care only. The daughter states that her understanding of his condition prior to lifting the DNR and authorizing intubation was that the patient was actively choking and in discomfort gasping for air. She states that as long as her father is comfortable she is more inclined to decide on comfort care. At this time, the brother would like to continue intubation only status. He states that if the father continues to aspirate he will convert to a DNR but at this time wishes to give his father every opportunity. . Objective Vital Signs Date Time Temp Pulse Resp B/P (MAP) Pulse Ox O2 Delivery O2 Flow Rate FiO2 01/03/17 07:26 98.5 81 20 123/59 (80) 98 01/03/17 07:00 76 01/03/17 06:00 79 01/03/17 05:00 74 01/03/17 04:00 74 01/03/17 03:00 95 Nasal Cannula 2.00 01/03/17 03:00 98.0 73 22 151/66 (94) 95 01/03/17 03:00 72 01/03/17 02:00 76 01/03/17 01:00 68 01/03/17 00:00 72 01/02/17 23:00 69 01/02/17 23:00 97 Nasal Cannula 2.00 01/02/17 23:00 98.1 68 22 132/58 (82) 98 01/02/17 22:00 78 01/02/17 21:00 80 01/02/17 20:00 80 01/02/17 19:00 97 Nasal Cannula 2.00 01/02/17 19:00 79 01/02/17 19:00 98.0 77 22 157/74 (101) 98 01/02/17 18:00 80 01/02/17 17:36 87 01/02/17 16:03 78 01/02/17 15:38 97 Nasal Cannula 2.00 01/02/17 15:38 81 01/02/17 15:38 97.6 89 20 129/68 (88) 97 01/02/17 14:02 74 01/02/17 13:02 74 01/02/17 12:35 71 01/02/17 11:20 97.1 69 20 137/68 (91) 99 01/02/17 11:20 99 Nasal Cannula 2.00 01/02/17 11:20 67 Intake & Output 01/03/17 01/03/17 07:00 19:00 Intake Total 2643 ml Output Total 600 ml Balance 2043 ml Intake Oral 240 ml IV Total 2403 ml Output Urine Total 600 ml Physical Exam CONSTITUTIONAL/GENERAL: This is a mildly obese patient, in no apparent distress. TUBES/LINES/DRAINS: LFA PIV SKIN: No jaundice, rashes, or lesions. Ecchymoses on upper extremities. No wounds seen anteriorly. Skin temperature appropriate. Not diaphoretic. CARDIOVASCULAR: Regular rate and rhythm with 3/6 systolic ejection murmur, heard best at the left sternal border, no rub nor gallop. RESPIRATORY/CHEST: Lungs are clear, diminished at the bases. Respirations are eupneic. No rhonchi or wheezes. GASTROINTESTINAL: Abdomen obese, soft, non-tender, nondistended. No guarding. Bowel sounds present. GENITOURINARY: Without palpable bladder distension. Honeycutt catheter in place secondary to urinary retention, urology following. MUSCULOSKELETAL: Extremities without clubbing or cyanosis, 2-3+ edema. No joint tenderness or effusion noted. No calf tenderness. No mottling or clubbing. NEUROLOGICAL: Lethargic, not arousing to multiple voices in the room. Arouses to noxious stimuli. PSYCHIATRIC: No obvious anxiety/depression. no apparent hallucinations or other psychotic thought process. . Diagnostic Tests Laboratory Laboratory Tests Test 01/01/17 13:50 01/02/17 06:04 Blood Urea Nitrogen 12 MG/DL (7-18) Creatinine 0.86 MG/DL (0.60-1.30) 0.75 MG/DL (0.60-1.30) Random Glucose 142 MG/DL (74-106) Calcium Level 9.1 MG/DL (8.5-10.1) Sodium Level 145 MEQ/L (136-145) Potassium Level 4.4 MEQ/L (3.5-5.1) Chloride Level 110 MEQ/L (98-107) Carbon Dioxide Level 25.8 MEQ/L (21.0-32.0) Anion Gap 9 MEQ/L (5-15) Estimat Glomerular Filtration Rate 84 ML/MIN (>89) 98 ML/MIN (>89) Result Diagram: 01/02/17 0604 Microbiology Microbiology Date/Time Source Procedure Growth Status 12/25/16 07:00 Blood Peripheral Aerobic Blood Culture - Final NO GROWTH IN 5 DAYS Complete 12/25/16 07:00 Blood Peripheral Anaerobic Blood Culture - Final NO GROWTH IN 5 DAYS Complete 12/27/16 18:53 Sputum Endotracheal Gram Stain - Final Complete 12/27/16 18:53 Sputum Endotracheal Sputum Culture - Final MODERATE GROWTH NORMAL RESPIRATORY MANJU Complete 12/25/16 08:04 Urine Random Urine Urine Culture - Final Proteus Mirabilis Complete Imaging Last Impressions Abdomen/Pelvis CT 12/29/16 0000 Signed Impressions: Service Date/Time: December 12:15 - CONCLUSION: 1. There is a 7.8 x 5.4 cm fluid collection in the retroperitoneum on the right this arises from the proximal right ureter. It measures only 12 Hounsfield units. This may be the sequelae of an old ureteral injury. Retrograde evaluation of the ureter would be of benefit for further assessment. 2. No findings to indicate bowel obstruction identified. No free air or free fluid is present. 3. Small bibasilar effusions and consolidative changes within the lung bases. 4. 2.8 x 2.0 cm cyst within the liver. 5. Heterogeneous enhancement of the liver suggesting underlying hepatocellular disease. Jarred Cam MD Chest X-Ray 12/28/16 0400 Signed Impressions: Service Date/Time: Wednesday, December 28, 2016 05:36 - CONCLUSION: 1. Endotracheal tube and nasogastric tube in good position. Basilar airspace disease similar to December 27. Kb Hendrix MD Head CT 12/28/16 0000 Signed Impressions: Service Date/Time: Wednesday, December 28, 2016 01:01 - CONCLUSION: 1. No acute findings. Chronic white matter ischemic changes. Mucosal thickening ethmoid air cells. Kb Hendrix MD Renal Ultrasound 12/26/16 0000 Signed Impressions: Service Date/Time: Monday, December 26, 2016 14:22 - CONCLUSION: Negative hydronephrosis. Silvio Cam MD FACR Procedures 12/27/16-orotracheal intubation. Assessment and Plan Disease Oriented Problem List: (1) Confusion (2) Debility (3) Dysphagia (4) Hyperlipemia (5) Hypertension (6) Sepsis (7) UTI (urinary tract infection) (8) Acute respiratory failure with hypercapnia Symptom Scale: (1) Dyspnea and respiratory abnormalities 0-10 Scale: Unable to quantify (2) Fatigue 0-10 Scale: Unable to quantify (3) Dysphagia 0-10 Scale: Unable to quantify Pertinent Non-Medical Issues Psychosocial:He was born in [place] and moved to the around age 33 is settling in [place]. He completed his education through [employer] in [place]. 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 From [place] they moved to [facility] and opened another convenience store but after 2 years decided to retire. After he broke his leg 2-1/2 years ago he moved to the [facility] closer to where his son is to settle into a long-term facility with his who had since developed dementia. Spiritual:He is a practicing Buddhist and would like sacraments of the sick from the pharmacy cashier. Legal:None. Ethical issues impacting care: None. . Important Contacts Farida Marcusan Jez Jr Spencer . Prognosis His prognosis is poor. He is 86 years old with multiple comorbidities to include diabetes, hypertension, hyperlipidemia, BPH, and newly diagnosed dysphasia and urinary retention. He is no longer able to ambulate and cannot re -position himself in bed. He is at elevated risk for recurrent aspiration, respiratory failure and failure to thrive. . Code Status: Alternative Code (Intubation only) Plan PLAN: Legal decision maker: There are 2 children, daughter Farida, and son Jez, who shared decision making. Patient has some capacity but defers to his children. Goals: Family wishes patient to be comfortable and allowed intubation only because their understanding was that the patient was actively choking and gasping for air. Further discussion held today indicates that the patient's son would like to continue the alternate code of intubation only but would consider converting to DNR if patient requires recurrent intubation. CODE STATUS: Alternate code, intubation only at this time. SYMPTOMS: * Fatigue - has become more sedentary and somnolent per the daughter, Farida. Patient primarily has bed to wheelchair existence and naps frequently throughout the day and sleeps well through the night. Daughter attributes the worsening of this to the initiation of his antidepressants. He is more lethargic today. RN notes he is continuing to receive Reglan around the clock since his intubation. Could consider discontinuing antidepressants and Reglan if, indeed, they are contributing to his lethargy. * Dyspnea - secondary to aspiration pneumonia. He is now extubated and stable on nasal cannula oxygen. He has occasional rhonchorous cough with weak effort. May benefit from scheduled guaifenesin. * Dysphasia - passed his swallow evaluation 01/01. He is now on a soft diet with thin liquids. He ate breakfast well today, however coughed when given a sip of water by the RN. The family attributes this to his worsening lethargy and wants his medications reevaluated to eliminate as many as possible. Patient remains an alternate code, but family will consider converting to DNR if he requires recurrent intubations for aspiration. They have declined any thought of a feeding tube as not in keeping with the patient's wishes. They do wish to decrease his risk of aspiration by decreasing his medications which they feel may be contributing to his lethargy. Please see recommendations above. Palliative care will continue to follow the patient during hospital course as condition evolves, to assist patient/decision-maker with understanding of their medical conditions, weighing benefits/burdens of treatment options, for clarification of goals of treatment. Additionally will assist with any symptoms of palliative concern. . Attestation To help prompt me to consider important information that might be impacting today's encounter and assessment, information from prior notes written by myself or my colleagues may have been "brought forward" into today's note. My signature on this note, however, is an attestation that I personally performed the exam, history, and/or decision-making noted today, and, unless otherwise indicated, the interactions with patient, family, and staff as well as the review of records all occurred today. I also attest that the listed assessment and stated plan reflect my best clinical judgment today based on the combination of historical information, prior notes, and today's exam/ interactions. When time spent is documented, it refers only to time spent today by the signer, or if indicated, combined time spent today by collaborating physician/nurse practitioner. Beatriz Tong Jan 03, 2017 10:44 am
[2017-01-03] MEDS: FAMOTIDINE 20 MG TAB PO SCH (23:52)
[2017-01-03] MEDS: ATORVASTATIN 10 MG TAB PO SCH (23:52)
[2017-01-04] VITALS (8 sets, daily range): BP systolic 120–146; BP diastolic 54–65; PULSE 77–89; RESP 20–23; TEMP 97.9–99.8; O2SAT 94–100
[2017-01-04] MEDS: DORZOLAMIDE/TIMOLOL OPTH SOLN 10 ML BTL RIGHT EYE SCH ×3 (00:38→23:39)
[2017-01-04] MEDS: CHLORHEXIDINE 0.12% (ORAL KIT) 15 ML CUP MT SCH ×2 (08:00→19:46)
[2017-01-04] MEDS: FERROUS SULFATE 325 MG (65 MG ELEMENTAL IRON) TAB PO SCH ×2 (09:12→18:00)
[2017-01-04] MEDS: DOCUSATE SODIUM 50 MG/SENNA 8.6 MG TAB PO SCH ×2 (09:12→23:40)
[2017-01-04] MEDS: TAMSULOSIN HCL 0.4 MG CAP PO SCH ×2 (09:12→23:40)
[2017-01-04] MEDS: METOPROLOL TARTRATE 25 MG TAB PO SCH ×2 (09:12→23:40)
[2017-01-04] MEDS: SODIUM CHLORIDE 0.9% FLUSH 10 ML FLUSH IV FLUSH SCH ×2 (09:12→21:00)
--- NOTE | 2017-01-04 12:14 | HHI.PR ---
Subjective Remarks Follow up for respiratory failure, UTI. Patient is currently resting in bed, drowsy. He does wake up on verbal commands. Per nursing staff, patient ate about 25% of his meal. He remains afebrile. Objective Vitals Vital Signs Date Time Temp Pulse Resp B/P (MAP) Pulse Ox O2 Delivery O2 Flow Rate FiO2 01/04/17 09:31 Nasal Cannula 2.00 01/04/17 08:49 98.7 84 20 145/60 (88) 94 01/04/17 07:25 84 01/04/17 05:00 98.8 82 22 135/56 (82) 97 01/04/17 04:19 98 Nasal Cannula 3.00 01/04/17 00:15 97.9 89 22 140/54 (82) 99 01/03/17 20:00 98.0 98 23 148/56 (86) 99 01/03/17 19:30 99 Nasal Cannula 3.00 01/03/17 17:00 80 01/03/17 16:00 80 01/03/17 15:30 98 Nasal Cannula 2.00 01/03/17 15:00 82 01/03/17 15:00 99.1 84 20 139/68 (91) 98 01/03/17 14:00 82 01/03/17 13:00 74 I/O 01/03/17 01/03/17 01/03/17 01/04/17 01/04/17 01/04/17 07:00 15:00 23:00 07:00 15:00 23:00 Intake Total 2643 ml 120 ml 0 ml 0 ml Output Total 600 ml 550 ml 850 ml 900 ml Balance 2043 ml -430 ml -850 ml -900 ml Intake Oral 240 ml 120 ml 0 ml 0 ml IV Total 2403 ml Output Urine Total 600 ml 550 ml 850 ml 900 ml # Bowel Movements 1 0 0 Result Diagram: 01/04/17 0815 Objective Remarks GENERAL: Alert, NAD. SKIN: Warm and dry. HEAD: Normocephalic. EYES: No scleral icterus. No injection or drainage. NECK: Supple, trachea midline. No JVD or lymphadenopathy. CARDIOVASCULAR: Regular rate and rhythm without murmurs, gallops, or rubs. RESPIRATORY: Breath sounds equal bilaterally. No accessory muscle use. GASTROINTESTINAL: Abdomen soft, non-tender, nondistended. MUSCULOSKELETAL: No cyanosis, or edema. BACK: Nontender without obvious deformity. No CVA tenderness. Procedures Intubation 12/27/2016 A/P Problem List: (1) Acute respiratory failure with hypercapnia ICD Code: J96.02 - Acute respiratory failure with hypercapnia (2) UTI (urinary tract infection) ICD Code: N39.0 - Urinary tract infection, site not specified Status: Acute Assessment and Plan This is a 86-year-old gentleman with past medical history of diabetes who presented from [facility] secondary to fevers and fatigue. He was diagnosed with sepsis, UTI. He was started on Vancomycin and Zosyn. On 12/27/2016 , patient developed CO2 narcosis. After discussing with patient's daughter, DNR was rescinded and patient was intubated. Discussed at length with patient's daughter who appears to be very reasonable. She would like to discuss with palliative care. Acute respiratory failure hypercapnic Sepsis likely due to UTI Complicated Urinary tract infection with Proteus Mirabilis. - Patient received abx. Currently no fever, chills. - Currently on nasal cannula O2 2 L. Hypertension Hyperlipidemia - Continue Amlodipine 10mg Qday. - Continue Lipitor 10mg QHS. GERD - Famotidine 20mg QHS. Dysphagia - Patient is currently on mechanical soft diet per speech. Deconditioning: PT following. Hypokalemia: Status post replacement. K 4.4 Code status: Intubation only in the event of cardiopulmonary arrest. Overall poor prognosis. Would be a good hospice candidate. Palliative care is following. Problem Qualifiers (1) UTI (urinary tract infection): Bee Kim DO Jan 04, 2017 12:14 pm
[2017-01-04] MEDS: FAMOTIDINE 20 MG TAB PO SCH (23:40)
[2017-01-04] MEDS: ATORVASTATIN 10 MG TAB PO SCH (23:40)
[2017-01-05] VITALS (8 sets, daily range): BP systolic 119–173; BP diastolic 56–77; PULSE 70–94; RESP 18–22; TEMP 96.4–99; O2SAT 91–96
[2017-01-05] MEDS: ACETAMINOPHEN 325 MG TAB PO PRN ×2 (06:12→16:57)
[2017-01-05] MEDS: CHLORHEXIDINE 0.12% (ORAL KIT) 15 ML CUP MT SCH ×2 (08:00→20:16)
[2017-01-05] MEDS: DOCUSATE SODIUM 50 MG/SENNA 8.6 MG TAB PO SCH ×2 (08:30→20:16)
[2017-01-05] MEDS: FERROUS SULFATE 325 MG (65 MG ELEMENTAL IRON) TAB PO SCH ×2 (08:30→16:57)
[2017-01-05] MEDS: TAMSULOSIN HCL 0.4 MG CAP PO SCH ×2 (08:31→20:16)
[2017-01-05] MEDS: METOPROLOL TARTRATE 25 MG TAB PO SCH ×2 (08:31→20:16)
[2017-01-05] MEDS: SODIUM CHLORIDE 0.9% FLUSH 10 ML FLUSH IV FLUSH SCH ×2 (08:31→20:16)
[2017-01-05] MEDS: DORZOLAMIDE/TIMOLOL OPTH SOLN 10 ML BTL RIGHT EYE SCH ×2 (08:34→20:17)
--- NOTE | 2017-01-05 14:05 | HHI.PR ---
Subjective Remarks Follow up for respiratory failure, UTI. Patient is awake but not conversational. Son is at bedside. No fever or chills. Patient is eating little bit maybe about 25%. Objective Vitals Vital Signs Date Time Temp Pulse Resp B/P (MAP) Pulse Ox O2 Delivery O2 Flow Rate FiO2 01/05/17 11:30 96.8 72 20 119/59 (79) 96 01/05/17 11:30 96 Nasal Cannula 2.00 01/05/17 08:44 98.6 83 20 135/56 (82) 94 01/05/17 08:05 85 01/05/17 04:30 98.1 83 21 136/61 (86) 94 01/05/17 04:00 Nasal Cannula 2.00 01/05/17 00:30 99.0 94 22 173/77 (109) 95 01/04/17 23:30 Nasal Cannula 2.00 01/04/17 21:15 98.8 80 23 130/65 (86) 95 01/04/17 20:00 Nasal Cannula 2.00 01/04/17 17:42 96 Nasal Cannula 2.00 01/04/17 16:40 99.8 81 20 146/62 (90) 96 I/O 01/04/17 01/04/17 01/04/17 01/05/17 01/05/17 01/05/17 07:00 15:00 23:00 07:00 15:00 23:00 Intake Total 0 ml 120 ml 100 ml Output Total 900 ml 1500 ml 600 ml Balance -900 ml -1380 ml -500 ml Intake Oral 0 ml 120 ml 100 ml Output Urine Total 900 ml 1500 ml 600 ml # Bowel Movements 0 1 1 Result Diagram: 01/04/17 0815 Objective Remarks GENERAL: Alert, NAD. SKIN: Warm and dry. HEAD: Normocephalic. EYES: No scleral icterus. No injection or drainage. NECK: Supple, trachea midline. No JVD or lymphadenopathy. CARDIOVASCULAR: Regular rate and rhythm without murmurs, gallops, or rubs. RESPIRATORY: Breath sounds equal bilaterally. No accessory muscle use. GASTROINTESTINAL: Abdomen soft, non-tender, nondistended. MUSCULOSKELETAL: No cyanosis, or edema. BACK: Nontender without obvious deformity. No CVA tenderness. Procedures Intubation 12/27/2016 A/P Problem List: (1) Acute respiratory failure with hypercapnia ICD Code: J96.02 - Acute respiratory failure with hypercapnia (2) UTI (urinary tract infection) ICD Code: N39.0 - Urinary tract infection, site not specified Status: Acute Assessment and Plan This is a 86-year-old gentleman with past medical history of diabetes who presented from [facility] secondary to fevers and fatigue. He was diagnosed with sepsis, UTI. He was started on Vancomycin and Zosyn. On 12/27/2016 , patient developed CO2 narcosis. After discussing with patient's daughter, DNR was rescinded and patient was intubated. Discussed at length with patient's daughter who appears to be very reasonable. She would like to discuss with palliative care. Acute respiratory failure hypercapnic Sepsis likely due to UTI Complicated Urinary tract infection with Proteus Mirabilis. - Patient received abx. Currently no fever, chills. - Currently on nasal cannula O2 2 L. Hypertension Hyperlipidemia - Continue Amlodipine 10mg Qday. - Continue Lipitor 10mg QHS. GERD - Famotidine 20mg QHS. Dysphagia - Patient is currently on mechanical soft diet per speech. Deconditioning: PT following. Hypokalemia: Status post replacement. K 4.4 Discussed at length with patient's son and [id number]. We discussed that aspiration remains a significant risk for this patient. We'll consult hospice for discussion with the family members. Patient's son agrees with this plan. Code status: Intubation only in the event of cardiopulmonary arrest. Overall poor prognosis. Would be a good hospice candidate. Palliative care is following. Problem Qualifiers (1) UTI (urinary tract infection): Bee Kim DO Jan 05, 2017 2:05 pm
--- NOTE | 2017-01-05 14:25 | HHI.HCPN ---
Reason for visit a. To assist with evaluation and management of symptoms including: Fatigue, dyspnea, dysphagia b. To assist medical decision maker(s) with: better understanding of current medical conditions; weighing benefits/burdens of medical treatment options; making medical treatment decisions. Subjective/Interval History Not arousing today to tactile or verbal stimuli. Previously participated with speech therapy for breakfast. Speech therapy has now signed off. He is tolerating a thin liquid, pured diet. Physical therapy was unable to engage patient to lethargy and altered mental status. I spoke with Dr. Kim regarding patient's condition and he agrees that the patient continues to decline and has spoken to the son regarding hospice services. Hospice has been consulted to discuss services with the family for their consideration. Spoke with wide load escort, Sarina, who is in process of contacting the daughter. . Family/friend interactions Spoke with sister, Farida, via telephone and updated her as to patient's condition and Dr. Kim's assessment that patient would be appropriate for hospice if goals were consistent. He had previously spoken with the son today at bedside, however both children participate equally in healthcare decisions. Per my discussion with Farida, patient continues to decline and become more lethargic. Family is open to discussing hospice as their primary concern is patient comfort. Advance Directives Living Will: Never completed Health Care Surrogate: Never completed Durable Power of Quenching Machine Operator: Never completed Advance Directive Specifics Documented care wishes: At this time the family is leaning towards comfort care only. The daughter states that her understanding of his condition prior to lifting the DNR and authorizing intubation was that the patient was actively choking and in discomfort gasping for air. She states that as long as her father is comfortable she is more inclined to decide on comfort care. At this time, the brother would like to continue intubation only status. He states that if the father continues to aspirate he will convert to a DNR but at this time wishes to give his father every opportunity. . Objective Vital Signs Date Time Temp Pulse Resp B/P (MAP) Pulse Ox O2 Delivery O2 Flow Rate FiO2 01/05/17 11:30 96.8 72 20 119/59 (79) 96 01/05/17 11:30 96 Nasal Cannula 2.00 01/05/17 08:44 98.6 83 20 135/56 (82) 94 01/05/17 08:05 85 01/05/17 04:30 98.1 83 21 136/61 (86) 94 01/05/17 04:00 Nasal Cannula 2.00 01/05/17 00:30 99.0 94 22 173/77 (109) 95 01/04/17 23:30 Nasal Cannula 2.00 01/04/17 21:15 98.8 80 23 130/65 (86) 95 01/04/17 20:00 Nasal Cannula 2.00 01/04/17 17:42 96 Nasal Cannula 2.00 01/04/17 16:40 99.8 81 20 146/62 (90) 96 Intake & Output 01/05/17 01/05/17 06:59 18:59 Intake Total 100 ml Output Total 1400 ml Balance -1300 ml Intake Oral 100 ml Output Urine Total 1400 ml # Bowel Movements 2 Physical Exam CONSTITUTIONAL/GENERAL: This is a mildly obese patient, in no apparent distress. TUBES/LINES/DRAINS: LFA PIV SKIN: No jaundice, rashes, or lesions. Ecchymoses on upper extremities. No wounds seen anteriorly. Skin temperature appropriate. Not diaphoretic. CARDIOVASCULAR: Regular rate and rhythm with 3/6 systolic ejection murmur, heard best at the left sternal border, no rub nor gallop. RESPIRATORY/CHEST: Lungs with faint inspiratory rhonchi, diminished at the bases , eupneic. GASTROINTESTINAL: Abdomen obese, soft, nondistended. Bowel sounds present. GENITOURINARY: Without palpable bladder distension. Honeycutt catheter in place secondary to urinary retention, urology following. MUSCULOSKELETAL: Extremities without clubbing or cyanosis, 2+ edema. No mottling or clubbing. NEUROLOGICAL: Lethargic, not arousing to multiple voices in the room. Arouses to noxious stimuli. PSYCHIATRIC: No obvious anxiety/depression. no apparent hallucinations or other psychotic thought process. . Diagnostic Tests Laboratory Laboratory Tests Test 01/04/17 08:15 Creatinine 0.73 MG/DL (0.60-1.30) Estimat Glomerular Filtration Rate 101 ML/MIN (>89) Result Diagram: 01/04/17 0815 Procedures 12/27/16-orotracheal intubation. Assessment and Plan Disease Oriented Problem List: (1) Confusion (2) Debility (3) Dysphagia (4) Hyperlipemia (5) Hypertension (6) Sepsis (7) UTI (urinary tract infection) (8) Acute respiratory failure with hypercapnia Symptom Scale: (1) Dyspnea and respiratory abnormalities 0-10 Scale: Unable to quantify (2) Fatigue 0-10 Scale: Unable to quantify (3) Dysphagia 0-10 Scale: Unable to quantify Pertinent Non-Medical Issues Psychosocial:He was born in [place] and moved to the around age 33 is settling in [place]. He completed his education through [employer] in [place]. 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 From [place] they moved to [facility] and opened another convenience store but after 2 years decided to retire. After he broke his leg 2-1/2 years ago he moved to the [facility] closer to where his son is to settle into a intermediate facility with his who had since developed dementia. Spiritual:He is a practicing Pentecostalism and would like sacraments of the sick from the product distribution specialist. Legal:None. Ethical issues impacting care: None. . Important Contacts Farida Espinoza Jez Jr Spencer . Prognosis His prognosis is poor. He is 86 years old with multiple comorbidities to include diabetes, hypertension, hyperlipidemia, BPH, and newly diagnosed dysphasia and urinary retention. He is no longer able to ambulate and cannot re -position himself in bed. He is at elevated risk for recurrent aspiration, respiratory failure and failure to thrive. . Code Status: Alternative Code (Intubation only) Plan PLAN: * Legal decision maker: There are 2 children, daughter Farida, and son Jez, who shared decision making. The healthcare surrogate form specifically names the daughterFarida as the first HCS, however Farida states that she and her brother make these decisions jointly. * Goals: Family wishes patient to be comfortable and allowed intubation only because their understanding was that the patient was actively choking and gasping for air. Further discussion indicates that the patient's son would like to continue the alternate code of intubation only but would consider converting to DNR if patient requires recurrent intubation. CODE STATUS: Alternate code, intubation only at this time. SYMPTOMS: * Fatigue - patient continues to be lethargic in spite of stopping Reglan and Lexapro. This appears to be part of his chronic decline. Arouses to noxious stimuli but does not respond to voice or touch. * Dyspnea - improving, eupneic on 2L O2/NC. Recent aspiration pneumonia. May benefit from PRN duoneb. * Dysphasia - tolerating thin liquids and pured diet. Speech therapy has signed off at this time. Will require monitoring during meals. Appetite declining, lethargic. Family not willing to consider feeding tube. Admitted from the [facility] with a community DNR which was changed to an alternate code during admission of intubation only, no CPR. Family is still considering converting back to DNR and will likely do that if patient continues to decline. Hospice consult pending, discussed with the daughter and she is awaiting call from the admissions nurse, Sarina. Call placed to brother for update, voice message left. Spoke with Dr. Kim regarding patient's prognosis and he also feels the patient is hospice appropriate. Likely discharge back to the [facility] tomorrow. Palliative care will continue to follow the patient during hospital course as condition evolves, to assist patient/decision-maker with understanding of their medical conditions, weighing benefits/burdens of treatment options, for clarification of goals of treatment. Additionally will assist with any symptoms of palliative concern. . Attestation To help prompt me to consider important information that might be impacting today's encounter and assessment, information from prior notes written by myself or my colleagues may have been "brought forward" into today's note. My signature on this note, however, is an attestation that I personally performed the exam, history, and/or decision-making noted today, and, unless otherwise indicated, the interactions with patient, family, and staff as well as the review of records all occurred today. I also attest that the listed assessment and stated plan reflect my best clinical judgment today based on the combination of historical information, prior notes, and today's exam/ interactions. When time spent is documented, it refers only to time spent today by the signer, or if indicated, combined time spent today by collaborating physician/nurse practitioner. Beatriz Tong Jan 05, 2017 14:25
[2017-01-05] MEDS: ATORVASTATIN 10 MG TAB PO SCH (20:15)
[2017-01-05] MEDS: FAMOTIDINE 20 MG TAB PO SCH (20:15)
[2017-01-06 01:36] VITALS: BP 149/70; PULSE 78; RESP 18; TEMP 97.5; O2SAT 93
[2017-01-06 05:49] VITALS: BP 139/69; PULSE 80; RESP 16; TEMP 98.2; O2SAT 95
[2017-01-06 07:45] VITALS: BP 151/70; PULSE 88; RESP 18; TEMP 98.1; O2SAT 93
[2017-01-06] MEDS: CHLORHEXIDINE 0.12% (ORAL KIT) 15 ML CUP MT SCH (08:00)
[2017-01-06 08:05] VITALS: PULSE 85
[2017-01-06] MEDS: TAMSULOSIN HCL 0.4 MG CAP PO SCH (08:30)
[2017-01-06] MEDS: METOPROLOL TARTRATE 25 MG TAB PO SCH (08:30)
[2017-01-06] MEDS: FERROUS SULFATE 325 MG (65 MG ELEMENTAL IRON) TAB PO SCH (08:30)
[2017-01-06] MEDS: SODIUM CHLORIDE 0.9% FLUSH 10 ML FLUSH IV FLUSH SCH (08:31)
[2017-01-06] MEDS: DOCUSATE SODIUM 50 MG/SENNA 8.6 MG TAB PO SCH (08:31)
[2017-01-06] MEDS: DORZOLAMIDE/TIMOLOL OPTH SOLN 10 ML BTL RIGHT EYE SCH (08:32)
[2017-01-06] MEDS ORDERED: GLUCAGON 1 MG/ML VIAL OTHER PRN (10:15)
[2017-01-06] MEDS ORDERED: DEXTROSE 50% IN WATER 50 ML VIAL(D50) IV PUSH PRN (10:15)
[2017-01-06] MEDS ORDERED: INSULIN ASPART SUPPLEMENTAL SCALE SQ SCH (12:00)
--- NOTE | 2017-01-06 21:19 | HHI.DS ---
Discharge Summary Admission Date Dec 25, 2016 at 09:54 Discharge Date: Jan 06, 2017 Admitting Diagnosis sepsis. UTI. (1) Acute respiratory failure with hypercapnia ICD Code: J96.02 - Acute respiratory failure with hypercapnia (2) UTI (urinary tract infection) ICD Code: N39.0 - Urinary tract infection, site not specified Status: Acute Procedures Intubation 12/27/2016 Brief History - From Admission This is a 86-year-old gentleman with past medical history of diabetes who presented from [facility] secondary to fevers and fatigue. Patient is a poor historian and most of the history taken from his son and daughter-in- law were at the bedside during the interview and examination. Patient is able to give me his full name and location. He could not tell me the date. I was able to get some information from and he had no complaints. His son stated that he sees patient every day and that yesterday he was more fatigued and was in bed all day. He stated that today he had a fevers they brought him here due to UTI. Patient never complained of any abdominal pain or any urinary symptoms. Per patient's son since he had the left femur fracture he does not have any motivation to do anything. Patient's son stated that patient being bedridden is his baseline. Patient wears a diaper. Per patient's son this is his first UTI. All other review symptoms reviewed and negative. CBC/BMP: 01/06/17 0413 Significant Findings Laboratory Tests Test 01/04/17 08:15 01/06/17 04:13 Imaging Last Impressions Abdomen/Pelvis CT 12/29/16 0000 Signed Impressions: Service Date/Time: December 12:15 - CONCLUSION: 1. There is a 7.8 x 5.4 cm fluid collection in the retroperitoneum on the right this arises from the proximal right ureter. It measures only 12 Hounsfield units. This may be the sequelae of an old ureteral injury. Retrograde evaluation of the ureter would be of benefit for further assessment. 2. No findings to indicate bowel obstruction identified. No free air or free fluid is present. 3. Small bibasilar effusions and consolidative changes within the lung bases. 4. 2.8 x 2.0 cm cyst within the liver. 5. Heterogeneous enhancement of the liver suggesting underlying hepatocellular disease. Jarred Cam MD Chest X-Ray 12/28/16 0400 Signed Impressions: Service Date/Time: Wednesday, December 28, 2016 05:36 - CONCLUSION: 1. Endotracheal tube and nasogastric tube in good position. Basilar airspace disease similar to December 27. Kb Hendrix MD Head CT 12/28/16 0000 Signed Impressions: Service Date/Time: Wednesday, December 28, 2016 01:01 - CONCLUSION: 1. No acute findings. Chronic white matter ischemic changes. Mucosal thickening ethmoid air cells. Kb Hendrix MD Renal Ultrasound 12/26/16 0000 Signed Impressions: Service Date/Time: Monday, December 26, 2016 14:22 - CONCLUSION: Negative hydronephrosis. Silvio Cam MD FACR PE at Discharge GENERAL: Alert, NAD. Lying in bed comfortably on 2 L NC. SKIN: Warm and dry. Right upper extremity swelling due to IV infiltration. HEAD: Normocephalic. EYES: No scleral icterus. No injection or drainage. NECK: Supple, trachea midline. No JVD or lymphadenopathy. CARDIOVASCULAR: Regular rate and rhythm. 2/6 systolic murmur RESPIRATORY: Breath sounds equal bilaterally. No accessory muscle use. GASTROINTESTINAL: Abdomen soft, non-tender, nondistended. Active BS x 4 q. MUSCULOSKELETAL: No cyanosis. Bilateral lower extremities with 1+ pitting edema. BACK: Nontender without obvious deformity. No CVA tenderness. Pt update on day of discharge Patient remains averbal, resting in bed, no acute distress. Son at bedside. Remains afebrile. Hospital Course This is a 86-year-old gentleman with past medical history of diabetes who presented from [facility] secondary to fevers and fatigue. He was diagnosed with sepsis, UTI. He was started on Vancomycin and Zosyn. On 12/27/2016 , patient developed CO2 narcosis. After discussing with patient's daughter, DNR was rescinded and patient was intubated. Discussed at length with patient's daughter who appears to be very reasonable. She would like to discuss with palliative care. Acute respiratory failure hypercapnic Sepsis likely due to UTI Complicated Urinary tract infection with Proteus Mirabilis. - Patient received abx. Currently no fever, chills. - Currently on nasal cannula O2 2 L. Hypertension Hyperlipidemia - Continue Amlodipine 10mg Qday. - Continue Lipitor 10mg QHS. GERD - Famotidine 20mg QHS. Dysphagia - Patient is currently on mechanical soft diet per speech. He remains an aspiration risk. During feeding, he should be upright as much as possible. Deconditioning: PT recommends rehab. Hypokalemia: Status post replacement. K 4.4 Had multiple discussion with patient's daughter, son. Hospice was consulted. Patient's family wants patient to go back to [facility] and have hospice follow up later on. Code status: Intubation only in the event of cardiopulmonary arrest. Pt Condition on Discharge: Fair Discharge Disposition: Discharge to SNF Discharge Time: > 30 minutes Discharge Instructions DIET: Follow Instructions for: Heart Healthy Diet Speech Therapy-Diet Recommends: Pureed Activities you can perform: Regular-No Restrictions Continued Medications: Amlodipine (Amlodipine) 10 Mg Tab 10 MG PO DAILY for Blood Pressure Management, #30 TAB 0 Refills Atorvastatin (Atorvastatin) 10 Mg Tab 10 MG PO HS for Cholesterol Management, #30 TAB 0 Refills Difluprednate Opth (Durezol Opth) 0.05% Emul Dorzolamide-Timolol Opth Drops (Dorzolamide-Timolol Opth Drops) 22.3-6.8 Mg/Ml Soln 1 DROP RIGHT EYE BID for Glaucoma, BOTTLE 0 Refills Famotidine (Famotidine) 20 Mg Tab 20 MG PO HS, #60 TAB 0 Refills Ferrous Sulfate (Ferrous Sulfate) 325 Mg (65 Mg Iron) Tablet 325 MG PO BIDPC for Nutritional Supplement, #60 TAB 0 Refills Metoprolol Tartrate (Metoprolol Tartrate) 25 Mg Tab 25 MG PO BID, #60 TAB 0 Refills Oxybutynin ER 24 HR (Oxybutynin ER 24 HR) 10 Mg Tab 10 MG PO DAILY for Overactive Bladder, TAB 0 Refills Tamsulosin (Tamsulosin) 0.4 Mg Cap 0.4 MG PO DAILY for Manage Prostate Problems, #30 CAP 0 Refills Discontinued Medications: Escitalopram (Lexapro) 10 Mg Tab 10 MG PO DAILY, #30 TAB 0 Refills Glimepiride (Glimepiride) 2 Mg Tab 2 MG PO BIDAC for Blood Sugar Management, #60 TAB 0 Refills Metformin (Metformin) 500 Mg Tab 500 MG PO BIDPC for Blood Sugar Management, #60 TAB 0 Refills With meals Bee Kim DO Jan 06, 2017 21:19
== END 2017-01-06 13:12 | DRG 871 ==
LOC: NEPE 07:19 → NEDA 09:54 → HOCB 14:53 → N03A 12-27 13:14 → HCIS 12-31 18:23 → N05A 01-03 18:30
PROVIDERS: ADMIT Hospitalist; ATTEND Hospitalist
PROC: 5A1945Z Respiratory Ventilation, 24-96 Consecutive Hours (ICD-10-PCS; principal; 2016-12-27)
PROC: 0BH17EZ Insertion of Endotracheal Airway into Trachea, Via Natural or Artificial Opening (ICD-10-PCS; 2016-12-27)
DX: A41.9 Sepsis, unspecified organism (principal); J96.02 Acute respiratory failure with hypercapnia; E87.2 Acidosis; K92.2 Gastrointestinal hemorrhage, unspecified; R13.12 Dysphagia, oropharyngeal phase; E11.9 Type 2 diabetes mellitus without complications; I10 Essential (primary) hypertension; E78.5 Hyperlipidemia, unspecified; Z66 Do not resuscitate; Z91.19 Patient's noncompliance with other medical treatment and regimen; Z87.891 Personal history of nicotine dependence; Z74.01 Bed confinement status; Z51.5 Encounter for palliative care; F32.9 Major depressive disorder, single episode, unspecified; R33.8 Other retention of urine; N40.1 Benign prostatic hyperplasia with lower urinary tract symptoms; Z79.84 Long term (current) use of oral hypoglycemic drugs
CPT/HCPCS: 31500; 36600; 51703; 70450; 71010; 74177; 76775; 76937; 80048; 80051; 80053; 80202; 81001; 82310; 82550; 82565; 82805; 82947; 82948; 83605; 83735; 83880; 84100; 84132; 84443; 84484; 84520; 85025; 85027; 85610; 85730; 87040; 87070; 87077; 87086; 87186; 87205; 87804; 93005; 94002; 94003; 94150; 96365; 96367; J1650; J1815; J1940; J2250; J2543; J2765; J3370; J3480; J7030; J7040; J7042; J7050; Q9963; Q9967